=== PATIENT | male | born 1940 | race Caucasian/White ===

== ENCOUNTER 2017-11-02 16:28 | Inpatient (IN) | payer MEDICARE ==
[2017-11-02] MEDS ORDERED: PROVENTIL 2.5 MG/3 ML NEB IH ONE ×2 (16:33→16:35)
[2017-11-02] MEDS ORDERED: LEVOFLOXACIN 750MG/150ML D5W 750 MG/150 ML BAG IV STA (16:35)
[2017-11-02 16:44] LABS: A-aADO2 201; ABG HEMOGLOBIN 11.1; ABG POTASSIUM 3.5 (3.5-5.1); ABG SITE RIGHT RADIAL; ARTERIAL BLD GAS O2 SATURATION 99.2 % (95-100); ARTERIAL BLOOD GAS BASE EXCESS 6.8 (-2.0-2.0); ARTERIAL BLOOD GAS FIO2 60 %; ARTERIAL BLOOD GAS PCO2 47 mmHg (35-45); ARTERIAL BLOOD GAS PO2 168 mmHg (75-100); ARTERIAL BLOOD GAS pH 7.44 (7.35-7.45); CARBOXYHEMOGLOBIN 1.6 % THgb (0.0-6.9); HCO3- 31.9 (22-28); HGB O2 SAT 96.3 g/dF (94-100); Methhemoglobin 1.3 % (1.4-1.5); paO2 pAO1 0.46
[2017-11-02] MEDS ORDERED: Sodium Chloride 0.9% 1000 ML 1,000 ML IV SCH ×2 (16:45→18:08)
[2017-11-02] MEDS ORDERED: Sodium Chloride 0.9% 1000 ML 1,000 ML ONE (16:47)
[2017-11-02] MEDS ORDERED: LEVOFLOXACIN 750MG/150ML D5W 750 MG/150 ML BAG IV ONE (16:47)
[2017-11-02 16:49] LABS: Hematocrit 35.2 % (42-50); Hemoglobin 10.9 gm/dl (12.5-18.0); Mean Platelet Volume 11.9 fl (6-9.5); Platelet Count 166 K/mm3 (150-450); Red Blood Count 3.87 M/mm3 (4.1-5.6); Red Cell Distribution Width 16.5 % (11.5-14.0); White Blood Count 8.3 K/mm3 (4.0-10.5)
--- NOTE | 2017-11-02 16:55 | XRAY ---
Indication: Short of breath and cough. Comparison: None Portable chest demonstrates diffuse scattered calcific granulomas without focal infiltrate, consolidation, or large effusion. Heart is not enlarged. Left-sided AICD and multiple overlying monitoring leads. Bony thorax intact with mild osteopenia, degenerative changes, and mild scoliosis. Impression: Nonacute with chronic features.
[2017-11-02 16:56] LABS: Mean Corpuscular Hemoglobin 28.1 pg (26-32)
[2017-11-02 16:57] LABS: Granulocyte Absolute (ANC) 7.16 (1.4-6.9)
[2017-11-02 17:07] LABS: INR 1.13 (0.8-3.0)
[2017-11-02 17:10] LABS: PTT 18.7 SECONDS (24.1-36.1)
[2017-11-02 17:15] LABS: ALBUMIN 2.1 g/dL (3.4-5.0); ALKALINE PHOSPHATASE 98 U/L (46-116); ANION GAP 12.7 MEQ/L (5-15); BLOOD UREA NITROGEN 15 mg/dL (9-20); CHLORIDE 102 mEq/L (98-107); Calcium 9.8 mg/dL (8.5-10.1); Carbon Dioxide 31.1 mEq/L (21-32); Creatinine 1 1.08 mg/dl (0.55-1.30); EST GLOMERULAR FILTRATION RATE > 60 ML/MIN; Glucose 121 MG/DL (70-110); MAGNESIUM 1.8 mg/dL (1.8-2.4); Potassium 4.6 mEq/L (3.5-5.1); SGOT/AST 34 U/L (15-37); SGPT/ALT 16 U/L (12-78); SODIUM 141 mEq/L (136-145); Total Protein 7.1 gm/dL (6.4-8.2)
[2017-11-02] MEDS ORDERED: TYLENOL 325 MG PO ONE (17:19)
[2017-11-02] MEDS ORDERED: TYLENOL 325 MG ONE (17:22)
--- NOTE | 2017-11-02 17:34 | ERPHSYRPT ---
- History of Present Illness Time Seen by Provider: 11/02/17 16:35 Source: patient, family, EMS (gave oxygen, duoneb, and solu medrol 125mg IVPTA) Patient Subjective Stated Complaint: pt brought to ed per ems from home-reports pt has had increased sob over the last week-productive cough-91 % room air upon ems arrival Triage Nursing Assessment: pt present sob upon arrival-retractions and audible wheezes noted-pt unable to lay flat Physician History: CC: short of breath Hx; 76 y/o patient of Dr Morel with shortness of breath. Productive cough without fever or chills for 2 weeks, worse. Now has sputum. He is allergic to ceclor or singulair per ? He sees Dr Simms from pulmonary. EMS noted he was off oxygen on arrival. Improved with their oxygen and neb en route. Timing/Duration: week(s) (2) Severity of Dyspnea-Max: severe Severity of Dyspnea-Current: moderate Allergies/Adverse Reactions: No Known Drug Allergies Allergy (Unverified 11/02/17 17:12) Hx Tetanus, Diphtheria Vaccination/Date Given: No Hx Influenza Vaccination/Date Given: No Hx Pneumococcal Vaccination/Date Given: No Immunizations Up to Date: Yes - Review of Systems Constitutional: Malaise, No Fever, No Chills Eyes: No Symptoms Ears, Nose, & Throat: No Symptoms Respiratory: Cough, Dyspnea, Wheezing Cardiac: No Chest Pain, No Syncope Abdominal/Gastrointestinal: No Abdominal Pain, No Nausea, No Vomiting, No Diarrhea Genitourinary Symptoms: No Symptoms All Other Systems: Reviewed and Negative - Past Medical History Pertinent Past Medical History: Yes Cardiac History: Myocardial Infarction ([place]) Respiratory History: CHF, COPD - Past Surgical History Past Surgical History: Yes Cardiac: Internal Defibrillator, Pacemaker - Social History Smoking Status: Current some day smoker Exposure to second hand smoke: No Drug Use: none Patient Lives Alone: No - Nursing Vital Signs Nursing Vital Signs: Initial Vital Signs Pulse Rate 140 H 11/02/17 16:36 Respiratory Rate 36 H 11/02/17 16:36 O2 Sat by Pulse Oximetry 98 11/02/17 16:36 Pain Scale Pain Intensity 0 - Physical Exam General Appearance: moderate distress (breathless), alert Eye Exam: PERRL/EOMI Ears, Nose, Throat Exam: nasal congestion Neck Exam: normal inspection, non-tender, supple Respiratory Exam: respiratory distress, diminished breath sounds, crackles/rales , rhonchi, wheezing Cardiovascular/Chest Exam: tachycardia, irregular Abdominal/Gastrointestinal Exam: soft, No tenderness, No distention Extremity Exam: non-tender, normal range of motion, no calf tenderness, pedal edema (present bilateral) Neurologic Exam: alert, cooperative (mostly), sensation nml, No motor deficits Skin Exam: warm, dry, No rash SpO2 Interpretation: normal SpO2: 97 Oxygen Delivery: Nasal Cannula - Course Nursing assessment & vital signs reviewed: Yes EKG Interpreted by Me: RATE (134), A-fib, NORMAL AXIS, Non-specific ST Changes - Radiology Exams cxr X-ray Interpretation: Teleradiologist Report, No Pneumonia Ordered Tests: Active Orders 24 hr Category Date Time Status CO2 Monitoring STAT Care 11/02/17 17:22 Active Operating Theatre Technician STAT Care 11/02/17 16:36 Active Clean Catch Urine Specimen STAT Care 11/02/17 16:35 Active EKG-ER Only STAT Care 11/02/17 16:35 Active IV Insertion STAT Care 11/02/17 16:35 Active Oxygen-ED Only NASAL CANNULA 2 lpm Care 11/02/17 17:22 Active Pulse Oximetry (ED) STAT Care 11/02/17 16:35 Active Rectal Temperature STAT Care 11/02/17 16:35 Active CHEST 1 VIEW (PORTABLE) Stat Exams 11/02/17 16:35 Completed ARTERIAL BLOOD GASES Stat Lab 11/02/17 16:35 Results BLOOD CULTURE Stat Lab 11/02/17 16:51 Received CBC W DIFF Stat Lab 11/02/17 16:43 Completed CMP Stat Lab 11/02/17 16:43 Completed CULTURE,SPUTUM Stat Lab 11/02/17 16:35 Uncollected Lactic Acid Stat Lab 11/02/17 16:35 Results MAGNESIUM Stat Lab 11/02/17 16:43 Completed Manual Differential NC Stat Lab 11/02/17 16:43 Completed PROTIME WITH INR Stat Lab 11/02/17 16:43 Completed PTT Stat Lab 11/02/17 16:43 Completed TROPONIN Q3H Lab 11/02/17 17:30 Ordered TROPONIN Q3H Lab 11/02/17 20:30 Ordered TROPONIN Q3H Lab 11/02/17 23:30 Ordered TROPONIN Q3H Lab 11/03/17 02:30 Ordered TROPONIN Q3H Lab 11/03/17 05:30 Ordered UA W/RFX UR CULTURE Stat Lab 11/02/17 16:35 Ordered Respiratory Nebulizer STAT RT 11/02/17 16:36 Completed Medication Summary Generic Name Dose Route Start Last Admin Trade Name Anna PRN Reason Stop Dose Admin Levofloxacin/Dextrose 750 mg in 150 mls @ 100 mls/hr 11/02/17 16:35 11/02/17 16:48 Levofloxacin 750mg/150ml D5w IV 11/02/17 18:04 100 mls/hr STAT STA Administration Sodium Chloride 1,000 mls @ 100 mls/hr 11/02/17 16:45 11/02/17 16:47 Sodium Chloride 0.9% 1000 Ml IV 12/02/17 16:44 100 mls/hr .Q10H ROSSANA Administration Sodium Chloride 500 mls @ 999 mls/hr 11/02/17 17:19 11/02/17 17:29 Sodium Chloride 0.9% 1000 Ml IV 11/02/17 17:49 999 mls/hr .Q31M STA Administration Discontinued Medications Generic Name Dose Route Start Last Admin Trade Name Anna PRN Reason Stop Dose Admin Acetaminophen 650 mg 11/02/17 17:19 11/02/17 17:29 Tylenol 325 Mg PO 11/02/17 17:20 650 mg STAT ONE Administration Acetaminophen Confirm 11/02/17 17:22 Tylenol 325 Mg Administered 11/02/17 17:23 Dose 650 mg .ROUTE .STK-MED ONE Albuterol Sulfate Confirm 11/02/17 16:33 Proventil 2.5 Mg/3 Ml Neb Administered 11/02/17 16:34 Dose 2.5 mg IH .STK-MED ONE Albuterol Sulfate 2.5 mg 11/02/17 16:35 11/02/17 16:49 Proventil 2.5 Mg/3 Ml Neb IH 11/02/17 16:36 2.5 mg STAT ONE Administration Levofloxacin/Dextrose Confirm 11/02/17 16:47 Levofloxacin 750mg/150ml D5w Administered 11/02/17 16:48 Dose 750 mg in 150 mls @ ud IV .STK-MED ONE Lab/Rad Data: Laboratory Result Diagrams 11/02/17 16:43 11/02/17 16:43 Laboratory Results 11/02/17 11/02/17 11/02/17 Range/Units 16:51 16:43 16:43 WBC (4.0-10.5) K/mm3 RBC (4.1-5.6) M/mm3 Hgb (12.5-18.0) gm/dl Hct (42-50) % MCV (78-100) fl MCH (26-32) pg MCHC (32-36) g/dl RDW (11.5-14.0) % Plt Count (150-450) K/mm3 MPV (6-9.5) fl INR 1.13 (0.8-3.0) APTT 18.7 L (24.1-36.1) SECONDS Puncture Site pCO2 (35-45) mmHg pO2 (75-100) mmHg Base Excess (-2.0-2.0) O2 Saturation (94-100) g/dF ABG pH (7.35-7.45) ABG HCO3 (22-28) ABG O2 Sat (Measured) (95-100) % Arnie Test A-a Gradient a/A Ratio Hemoglobin Carboxyhemoglobin (0.0-6.9) % THgb Methemoglobin (1.4-1.5) % Potassium 4.6 (3.5-5.1) Temperature C POC O2 Flow Rate % Sodium 141 (136-145) mEq/L Chloride 102 (98-107) mEq/L Carbon Dioxide 31.1 (21-32) mEq/L Anion Gap 12.7 (5-15) MEQ/L BUN 15 (9-20) mg/dL Creatinine 1.08 (0.55-1.30) mg/dl Estimated GFR > 60 ML/MIN Glucose 121 H (70-110) MG/DL Lactic Acid (0.4-2.0) Calcium 9.8 (8.5-10.1) mg/dL Magnesium 1.8 (1.8-2.4) mg/dL Total Bilirubin 0.70 (0.2-1.0) mg/dL AST 34 (15-37) U/L ALT 16 (12-78) U/L Alkaline Phosphatase 98 (46-116) U/L Serum Total Protein 7.1 (6.4-8.2) gm/dL Albumin 2.1 L (3.4-5.0) g/dL Influenza Type A Ag POSITIVE (NEGATIVE) Influenza Type B Ag NEGATIVE (NEGATIVE) RSV (PCR) NEGATIVE (Negative) 11/02/17 11/02/17 Range/Units 16:43 16:35 WBC 8.3 (4.0-10.5) K/mm3 RBC 3.87 L (4.1-5.6) M/mm3 Hgb 10.9 L (12.5-18.0) gm/dl Hct 35.2 L (42-50) % MCV 91.0 (78-100) fl MCH 28.1 (26-32) pg MCHC 31.0 L (32-36) g/dl RDW 16.5 H (11.5-14.0) % Plt Count 166 (150-450) K/mm3 MPV 11.9 H (6-9.5) fl INR (0.8-3.0) APTT (24.1-36.1) SECONDS Puncture Site RIGHT RADIAL pCO2 47 H (35-45) mmHg pO2 168 H* (75-100) mmHg Base Excess 6.8 H (-2.0-2.0) O2 Saturation 96.3 (94-100) g/dF ABG pH 7.44 (7.35-7.45) ABG HCO3 31.9 H* (22-28) ABG O2 Sat (Measured) 99.2 (95-100) % Arnie Test NOT APPLICABLE A-a Gradient 201 a/A Ratio 0.46 Hemoglobin 11.1 Carboxyhemoglobin 1.6 (0.0-6.9) % THgb Methemoglobin 1.3 L (1.4-1.5) % Potassium 3.5 (3.5-5.1) Temperature 37.0 C POC O2 Flow Rate 60 % Sodium (136-145) mEq/L Chloride (98-107) mEq/L Carbon Dioxide (21-32) mEq/L Anion Gap (5-15) MEQ/L BUN (9-20) mg/dL Creatinine (0.55-1.30) mg/dl Estimated GFR ML/MIN Glucose (70-110) MG/DL Lactic Acid 2.0 (0.4-2.0) Calcium (8.5-10.1) mg/dL Magnesium (1.8-2.4) mg/dL Total Bilirubin (0.2-1.0) mg/dL AST (15-37) U/L ALT (12-78) U/L Alkaline Phosphatase (46-116) U/L Serum Total Protein (6.4-8.2) gm/dL Albumin (3.4-5.0) g/dL Influenza Type A Ag (NEGATIVE) Influenza Type B Ag (NEGATIVE) RSV (PCR) (Negative) - Progress Progress Note: 11/02/17 17:43 Still tachycardic. IVF bolus in progress. APAP given. Nebs given. He does not know meds. Flu A now positive. Called Dr Nava for [facility] and will place in ICU observation. She will decide further antiarrythmic after fluid bolus. Labs reassuring but he has some degree of resp distress with COPD that is concerning for deteriotation. Discussed with .: Elijah Will see patient in: hospital (observation) Counseled pt/family regarding: lab results, diagnosis, need for follow-up, rad results - Departure Time of Disposition: 17:44 Departure Disposition: Observation (ICU Dr Morel) Clinical Impression: Acute respiratory distress, Influenza A, COPD exacerbation Condition: Fair Critical Care Time: No Referrals: OLGA MOREL MD [Primary Care Provider] -
[2017-11-02 17:41] LABS: INFLUENZA B NEGATIVE (NEGATIVE); RESPIRATORY SYNCTIAL VIRUS NEGATIVE (Negative)
[2017-11-02 17:42] LABS: INFLUENZA A POSITIVE (NEGATIVE)
[2017-11-02 17:50] LABS: Appearance CLEAR (CLEAR); Bacteria MODERATE /HPF (NEGATIVE); Bilirubin NEGATIVE (NEGATIVE); Blood TRACE NON-HEM Ery/ul (0-5); Epithelial Cells RARE /HPF (FEW); Glucose NEGATIVE (NEGATIVE); Hyaline Casts 0-2 /LPF (0-2); Ketones NEGATIVE (NEGATIVE); Leukocyte Esterase TRACE (NEGATIVE); Mucus SLIGHT /HPF (NEGATIVE); Nitrite NEGATIVE (NEGATIVE); Protein,Urine Dip 30 (Negative); Specific Gravity 1.015 (1.005-1.025); Urobilinogen NORMAL mg/dL (0-1)
[2017-11-02] MEDS ORDERED: TYLENOL 325 MG PO PRN (18:08)
[2017-11-02] MEDS ORDERED: DUONEB 0.5-3 MG/3 ml Neb IH PRN (18:08)
[2017-11-02 18:22] LABS: Lymphocytes 6 % (24-44); Monocyte 1 % (0.0-12.0); Neutrophils 93 % (36.-66.); Platelet Estimate NORMAL (NORMAL); Total Cells Counted 100
[2017-11-02] MEDS: solu-MEDROL 125 MG IV SCH (18:31)
[2017-11-02] MEDS ORDERED: DUONEB 0.5-3 MG/3 ml Neb IH ONE (19:03)
[2017-11-02] MEDS: Sodium Chloride 0.9% 1000 ML 1,000 ML IV SCH (19:28)
[2017-11-02] MEDS ORDERED: CARDIZEM DRIP 100 MG/100 ML D5W 100 ML IV PRN (20:22)
--- NOTE | 2017-11-02 20:33 | PCM.HP ---
History of Present Illness - Chief Complaint Chief Complaint: Shortness of Breath History of Present Illness: is a 76 year old male pt of Dr. Morel from [facility] with COPD and CAD who came to ER [facility] c/o 2 wks of cough. CXR neg. He was found to have Influenza A. He was given nebulizer and IV levaquin and admitted to the ICU. He was quite SOB on admission but doing a little better now. Temp to 100.6 at home. Pt's first troponin was a little elevated at 0.064. He last had chest pain several days ago. - Review of Systems Constitutional: Fever Respiratory: Cough, Short Of Breath Cardiac: Chest Pain (several days ago), Edema (feet), Orthopnea Abdominal/Gastrointestinal: Diarrhea, Appetite Changes (no food x 7d, has been elena fluids) Neurological: Dizziness, No Parasthesia Psychological: Depression (denies suicidal ideation, but states, "I'd rather get well or be gone.") All Other Systems: Reviewed and Negative (poor historian) Medications & Allergies Allergies/Adverse Reactions: Allergies Allergy/AdvReac Type Severity Reaction Status Date / Time No Known Drug Allergies Allergy Unverified 11/02/17 17:12 - Past Medical History Past Medical History: Yes Cardiac History: Myocardial Infarction ([place]) Respiratory History: CHF, COPD - Past Surgical History Past Surgical History: Yes Cardiac History: Internal Defibrillator, Pacemaker - Social History Smoking Status: Current some day smoker Exposure to second hand smoke: No Alcohol: None Drug Use: none - Physical Exam Vital Signs: Vital Signs - 24 hr Temp Pulse Resp BP Pulse Ox 11/02/17 18:08 100 11/02/17 17:45 97 11/02/17 17:07 98.9 F 150 H 34 H 144/97 97 11/02/17 17:06 30 H 98 11/02/17 17:05 98.9 F 11/02/17 17:02 98 11/02/17 16:36 140 H 36 H 98 Oxygen-Last 24 hours O2 Percentage 4 Liters = 36% O2 Percentage 2 Liters = 28% O2 Percentage 2 Liters = 28% O2 Percentage 2 Liters = 28% General Appearance: no apparent distress, alert, thin Neurologic Exam: oriented x 3, cooperative, other (difficult to understand due to edentulous.) Eye Exam: eyes nml inspection Ears, Nose, Throat Exam: dry mucous membranes, other (tongue with black coating. no posterior pharyngeal erythema) Neck Exam: normal inspection Respiratory Exam: diminished breath sounds, prolonged expirations, wheezing ( faint scattered), No crackles/rales, No rhonchi Cardiovascular Exam: normal heart sounds, tachycardia, No murmur Gastrointestinal/Abdomen Exam: soft, tenderness (nonspecific), No distention, No mass, No guarding, No rebound Back Exam: normal inspection, No rash Extremity Exam: pedal edema (trace bilat. pedal pulses + bilat) Skin Exam: normal color, warm, dry, other (distal LE bilat quite dry skin) Results - Other Procedures and Tests Respiratory Therapy 11/02/17 20:17 EKG ROUTINE Assessment/Plan (1) Acute respiratory distress Current Visit: Yes Status: Acute Assessment & Plan: much improved. Getting nebs q4h, duonebs. Code(s): R06.03 - ACUTE RESPIRATORY DISTRESS (2) Elevated troponin I level Current Visit: Yes Status: Acute Assessment & Plan: I spoke wiht Dr. Wisdom, travel money advisor for Dr. Mata. He agrees that the elevated troponin may be just due to acute illness. Will continue wiht 5 total serial troponins. Repeat EKG now. Dr. Wisdom will be available to accept pt in transfer overnight if necessary due to elevated enzymes. I discussed with pt and his and they agree. Code(s): R74.8 - ABNORMAL LEVELS OF OTHER SERUM ENZYMES (3) Atrial fibrillation with RVR Current Visit: Yes Status: Acute Assessment & Plan: Will start on cardizem drip. Waited for initial 1L bolus to see what impact that would make on HR - dropped temporarily by about 10-15 bpm. Still tachycardic now. Code(s): I48.91 - UNSPECIFIED ATRIAL FIBRILLATION (4) CAD (coronary artery disease) Current Visit: Yes Status: Chronic Code(s): I25.10 - ATHSCL HEART DISEASE OF [place] CORONARY ARTERY W/O ANG PCTRS (5) COPD exacerbation Current Visit: Yes Status: Acute Assessment & Plan: on IV levaquin. Intially there was a misunderstanding in ER that pt was allergic to ceclor - he is not, perhaps he is allergic to singulair although this is not on his list either - so he was started on levaquin. Code(s): J44.1 - CHRONIC OBSTRUCTIVE PULMONARY DISEASE W (ACUTE) EXACERBATION (6) Influenza A Current Visit: Yes Status: Acute Assessment & Plan: on tamiflu Code(s): J10.1 - FLU DUE TO OTH IDENT INFLUENZA VIRUS W OTH RESP MANIFEST (7) DVT prophylaxis Current Visit: Yes Status: Acute Code(s): JCL4463 -
[2017-11-02] MEDS ORDERED: Tamiflu 75MG Capsule PO SCH (22:00)
[2017-11-02] MEDS: DUONEB 0.5-3 MG/3 ml Neb IH SCH (23:42)
[2017-11-03] MEDS: Mucinex 600MG ER Tabs PO SCH ×3 (00:09→23:02)
[2017-11-03] MEDS: solu-MEDROL 125 MG IV SCH ×5 (00:09→23:01)
[2017-11-03] MEDS ORDERED: PROVENTIL 2.5 MG/3 ML NEB IH PRN (01:15)
[2017-11-03] MEDS ORDERED: PROVENTIL 2.5 MG/3 ML NEB IH ONE (01:17)
[2017-11-03] MEDS: DUONEB 0.5-3 MG/3 ml Neb IH SCH ×6 (03:24→23:23)
[2017-11-03 05:36] LABS: Lactic Acid 0.9 (0.4-2.0); VBG BASE EXCESS 6.4 (-2.0-2.0); VBG CARBOXYHEMOGLOBIN 3.1 % T HGB (0.0-6.9); VBG HCO3- 30.5 meq/L (22-28); VBG HEMOGLOBIN 8.1; VBG O2 SATURATION 91.5 (95-100); VBG POTASSIUM 3.4 (3.5-5.1); VBG pH 7.48 (7.32-7.42)
[2017-11-03] MEDS: Sodium Chloride 0.9% 1000 ML 1,000 ML IV SCH ×2 (05:37→23:03)
[2017-11-03 06:12] LABS: Granulocyte Absolute (ANC) 3.06 (1.4-6.9); Hematocrit 27.9 % (42-50); Hemoglobin 8.7 gm/dl (12.5-18.0); Mean Corpuscular Hgb Concent. 31.2 g/dl (32-36); Mean Platelet Volume 10.9 fl (6-9.5); Platelet Count 138 K/mm3 (150-450); Red Cell Distribution Width 16.3 % (11.5-14.0); White Blood Count 3.3 K/mm3 (4.0-10.5)
[2017-11-03 06:35] LABS: ANION GAP 10.8 MEQ/L (5-15); BLOOD UREA NITROGEN 17 mg/dL (9-20); CHLORIDE 105 mEq/L (98-107); Calcium 8.7 mg/dL (8.5-10.1); Carbon Dioxide 27.7 mEq/L (21-32); Creatinine 1 0.83 mg/dl (0.55-1.30); EST GLOMERULAR FILTRATION RATE > 60 ML/MIN; Glucose 150 MG/DL (70-110); Potassium 3.4 mEq/L (3.5-5.1); SODIUM 140 mEq/L (136-145)
[2017-11-03] MEDS ORDERED: NORCO 7.5/325 MG TAB PO PRN (07:02)
[2017-11-03] MEDS ORDERED: Nitrostat 0.4 MG Tablet SL PRN (07:02)
--- NOTE | 2017-11-03 07:50 | PCM.NOTE ---
Date and Time: 11/03/17746 Subjective Assessment: patient c/o oxygen facemask and CO2 detector device, denies chest pain. still has cough and dyspnea Objective Exam General Appearance: no apparent distress, thin Neurologic Exam: alert Skin Exam: pale Respiratory Exam: prolonged expirations, wheezing Cardiovascular Exam: irregular Gastrointestinal/Abdomen Exam: soft, No tenderness, No mass Extremity Exam: normal inspection, normal range of motion OBJECTIVE DATA Vital Signs: Vital Signs - 24 hr Temp Pulse Resp BP BP Pulse Ox 11/03/17 07:34 97.9 F 90 16 107/72 100 11/03/17 07:03 88 24 99 11/03/17 06:50 81 18 114/64 100 11/03/17 06:00 98.2 F 77 16 112/63 100 11/03/17 04:59 98.2 F 89 16 113/69 100 11/03/17 03:54 98.2 F 97 H 17 112/48 100 11/03/17 03:24 99 H 20 100 11/03/17 03:00 98.2 F 102 H 16 105/69 100 11/03/17 02:00 98.2 F 97 H 21 113/57 99 11/03/17 01:20 98 H 21 98 11/03/17 01:00 98.2 F 111 H 29 H 114/67 99 11/03/17 00:01 109 H 11/03/17 00:00 98.2 F 102 H 114/72 100 11/02/17 23:42 100 H 21 99 11/02/17 22:53 98.2 F 103 H 117/68 100 11/02/17 22:03 112 H 106/70 11/02/17 22:00 98.2 F 104 H 121/75 99 11/02/17 21:00 98.2 F 108 H 20 114/65 100 11/02/17 20:31 102 H 20 100 11/02/17 20:00 98.9 F 102 H 20 112/81 94 L 11/02/17 18:08 100 11/02/17 17:45 97 11/02/17 17:07 98.9 F 150 H 34 H 144/97 97 11/02/17 17:06 30 H 98 11/02/17 17:05 98.9 F 11/02/17 17:02 98 11/02/17 16:36 140 H 36 H 98 Oxygen-Last 24 hours O2 Percentage 4 Liters = 36% O2 Percentage 4 Liters = 36% O2 Percentage 4 Liters = 36% O2 Percentage 4 Liters = 36% O2 Percentage 4 Liters = 36% O2 Percentage 4 Liters = 36% O2 Percentage 4 Liters = 36% O2 Percentage 4 Liters = 36% O2 Percentage 4 Liters = 36% O2 Percentage 4 Liters = 36% O2 Percentage 4 Liters = 36% O2 Percentage 4 Liters = 36% O2 Percentage 4 Liters = 36% O2 Percentage 2 Liters = 28% O2 Percentage 2 Liters = 28% O2 Percentage 2 Liters = 28% Oxygen Flowrate (L/min)-RT 4 Pain Assessment - Last Documented Pain Intensity 0 Pain Scale Used 0-10 Pain Scale Intake and Output: Intake & Output 10/31/17 11/01/17 11/02/17 11/03/17 11:59 11:59 11:59 11:59 Intake Total 1851 Output Total 0 Balance 1851 Weight 52.8 kg Lab Results: Lab Results-Last 24 Hours 11/02/17 11/02/17 11/02/17 Range/Units 21:02 21:06 23:41 WBC (4.0-10.5) K/mm3 RBC (4.1-5.6) M/mm3 Hgb (12.5-18.0) gm/dl Hct (42-50) % MCV (78-100) fl MCH (26-32) pg MCHC (32-36) g/dl RDW (11.5-14.0) % Plt Count (150-450) K/mm3 MPV (6-9.5) fl VBG pH (7.32-7.42) VBG pCO2 at Pat Temp (42-55) mm/Hg VBG pO2 at Pat Temp (25-40) mm/Hg VBG HCO3 (22-28) meq/L VBG O2 Sat (Yocasta) (95-100) VBG Base Excess (-2.0-2.0) VBG Hemoglobin VBG Carboxyhemoglobin (0.0-6.9) % T HGB POC Potassium (3.5-5.1) Sodium (136-145) mEq/L Potassium (3.5-5.1) mEq/L Chloride (98-107) mEq/L Carbon Dioxide (21-32) mEq/L Anion Gap (5-15) MEQ/L BUN (9-20) mg/dL Creatinine (0.55-1.30) mg/dl Estimated GFR ML/MIN Glucose (70-110) MG/DL Lactic Acid 1.3 (0.4-2.0) Calcium (8.5-10.1) mg/dL Troponin I 0.078 H* 0.080 H* (0.000-0.056) ng/ml 11/03/17 11/03/17 11/03/17 Range/Units 05:20 05:20 05:30 WBC 3.3 L (4.0-10.5) K/mm3 RBC 3.10 L (4.1-5.6) M/mm3 Hgb 8.7 L (12.5-18.0) gm/dl Hct 27.9 L (42-50) % MCV 90.0 (78-100) fl MCH 28.0 (26-32) pg MCHC 31.2 L (32-36) g/dl RDW 16.3 H (11.5-14.0) % Plt Count 138 L (150-450) K/mm3 MPV 10.9 H (6-9.5) fl VBG pH 7.48 H (7.32-7.42) VBG pCO2 at Pat Temp 41 L (42-55) mm/Hg VBG pO2 at Pat Temp 49 H (25-40) mm/Hg VBG HCO3 30.5 H* (22-28) meq/L VBG O2 Sat (Yocasta) 91.5 L (95-100) VBG Base Excess 6.4 H (-2.0-2.0) VBG Hemoglobin 8.1 VBG Carboxyhemoglobin 3.1 (0.0-6.9) % T HGB POC Potassium 3.4 L (3.5-5.1) Sodium 140 (136-145) mEq/L Potassium 3.4 L (3.5-5.1) mEq/L Chloride 105 (98-107) mEq/L Carbon Dioxide 27.7 (21-32) mEq/L Anion Gap 10.8 (5-15) MEQ/L BUN 17 (9-20) mg/dL Creatinine 0.83 (0.55-1.30) mg/dl Estimated GFR > 60 ML/MIN Glucose 150 H (70-110) MG/DL Lactic Acid 0.9 (0.4-2.0) Calcium 8.7 (8.5-10.1) mg/dL Troponin I (0.000-0.056) ng/ml Assessment/Plan (1) Atrial fibrillation with RVR Current Visit: Yes Status: Acute Assessment & Plan: rate controlled on cardizem gtt 8mg/hr, will transition to po cardizem LA at 180mg, add xarelto for prophylaxis and d/c lovenox 40mg Code(s): I48.91 - UNSPECIFIED ATRIAL FIBRILLATION (2) COPD exacerbation Current Visit: Yes Status: Acute Assessment & Plan: continue levaquin, nebs, oxygen and solu medrol Code(s): J44.1 - CHRONIC OBSTRUCTIVE PULMONARY DISEASE W (ACUTE) EXACERBATION (3) Elevated troponin I level Current Visit: Yes Status: Acute Assessment & Plan: likely from a fib with rvr, no chest pain. [facility] aware per Dr Nava's note Code(s): R74.8 - ABNORMAL LEVELS OF OTHER SERUM ENZYMES (4) Influenza A Current Visit: Yes Status: Acute Assessment & Plan: continue tamiflu at this time Code(s): J10.1 - FLU DUE TO OTH IDENT INFLUENZA VIRUS W OTH RESP MANIFEST
[2017-11-03 07:55] LABS: ACANTHROCYTES 1+; ANISOCYTOSIS 1+; Lymphocytes 8 % (24-44); Neutrophils 92 % (36.-66.); Platelet Estimate NORMAL (NORMAL); Poikilocytosis 2+; Total Cells Counted 100
[2017-11-03] MEDS: Pepcid 20 MG PO SCH (09:17)
[2017-11-03] MEDS: ZOCOR 20MG PO SCH (09:17)
[2017-11-03] MEDS: XARELTO 10 MG TABLET PO SCH (09:17)
[2017-11-03] MEDS: Cardizem CD 180 MG PO SCH (09:18)
[2017-11-03] MEDS: OSELTAMIVIR PHOSPHATE 30 MG CAP PO SCH ×2 (09:18→23:03)
[2017-11-03] MEDS: Protonix 40MG Tablet PO SCH (09:18)
[2017-11-03] MEDS: REQUIP 2MG TAB PO SCH (09:19)
[2017-11-03] MEDS ORDERED: DELTASONE 10 MG PO SCH (10:00)
[2017-11-03] MEDS ORDERED: ATORVASTATIN CALCIUM PO SCH (10:00)
[2017-11-03] MEDS ORDERED: ENOXAPARIN SODIUM SQ SCH (10:00)
[2017-11-03] MEDS ORDERED: FAMOTIDINE PO SCH (10:00)
[2017-11-03] MEDS ORDERED: Tussionex Pennkinetic Susp PO PRN (10:04)
[2017-11-03] MEDS: Diflucan 100 MG PO SCH (16:36)
[2017-11-03] MEDS ORDERED: LEVOFLOXACIN 750MG/150ML D5W 750 MG/150 ML BAG IV SCH (22:00)
[2017-11-04] MEDS: DUONEB 0.5-3 MG/3 ml Neb IH SCH ×2 (03:23→06:24)
[2017-11-04 06:05] LABS: Hematocrit 29.4 % (42-50); Hemoglobin 9.1 gm/dl (12.5-18.0); Mean Cell Volume 90.2 fl (78-100); Mean Corpuscular Hemoglobin 27.9 pg (26-32); Mean Platelet Volume 10.9 fl (6-9.5); Platelet Count 213 K/mm3 (150-450); Red Blood Count 3.26 M/mm3 (4.1-5.6); Red Cell Distribution Width 16.6 % (11.5-14.0)
[2017-11-04 06:31] LABS: ALBUMIN 1.9 g/dL (3.4-5.0); ALKALINE PHOSPHATASE 75 U/L (46-116); ANION GAP 9.5 MEQ/L (5-15); BLOOD UREA NITROGEN 27 mg/dL (9-20); CHLORIDE 104 mEq/L (98-107); Carbon Dioxide 26.3 mEq/L (21-32); Creatinine 1 1.14 mg/dl (0.55-1.30); EST GLOMERULAR FILTRATION RATE > 60 ML/MIN; Glucose 274 MG/DL (70-110); MAGNESIUM 1.7 mg/dL (1.8-2.4); Potassium 3.5 mEq/L (3.5-5.1); SGOT/AST 23 U/L (15-37); SGPT/ALT 17 U/L (12-78); SODIUM 136 mEq/L (136-145)
[2017-11-04] MEDS: solu-MEDROL 125 MG IV SCH (06:31)
--- NOTE | 2017-11-04 07:39 | PCM.DS ---
Discharge Summary Date of Admission: 11/02/17 20:28 Admitting Physician: OLGA BRAGG Primary Care Provider: OLGA BRAGG Allergies Allergies No Known Drug Allergies Allergy (Unverified 11/02/17 17:12) Hospital Summary - Hospital Course Hospital Course: patient feeling much better, was in a fib with rvr on arrival, started on po cardizem and xarelto. rate has been controlled, also had influenza and copd exacerbation. sats are good on oxygen via nasal cannula which he has at home, patient asking to go home today. - Vitals & Intake/Output Vital Signs: Vital Signs Temperature 97.5 F 11/04/17 03:40 Pulse Rate 81 11/04/17 06:28 Respiratory Rate 18 11/04/17 06:28 Blood Pressure 126/86 11/04/17 03:40 O2 Sat by Pulse Oximetry 98 11/04/17 06:28 Oxygen-Last Documented O2 Percentage 3 Liters = 32% Intake & Output: Intake & Output 11/01/17 11/02/17 11/03/17 11/04/17 11:59 11:59 11:59 11:59 Intake Total 1851 2012 Output Total 0 200 Balance 1851 1813 Weight 52.8 kg - Lab Result Diagrams: 11/04/17 05:57 11/04/17 05:57 Lab Results-Last 24 Hrs: Lab Results-Last 24 Hours 11/03/17 11/04/17 11/04/17 Range/Units 05:20 05:57 05:57 WBC 11.0 H (4.0-10.5) K/mm3 RBC 3.26 L (4.1-5.6) M/mm3 Hgb 9.1 L (12.5-18.0) gm/dl Hct 29.4 L (42-50) % MCV 90.2 (78-100) fl MCH 27.9 (26-32) pg MCHC 31.0 L (32-36) g/dl RDW 16.6 H (11.5-14.0) % Plt Count 213 (150-450) K/mm3 MPV 10.9 H (6-9.5) fl Segmented Neutrophils 92 H (36.-66.) % Lymphocytes (Manual) 8 L (24-44) % Differential Comment ABNORMAL Platelet Estimate NORMAL (NORMAL) Poikilocytosis 2+ Anisocytosis 1+ Acanthocytes (Spur) 1+ Sodium 136 (136-145) mEq/L Potassium 3.5 (3.5-5.1) mEq/L Chloride 104 (98-107) mEq/L Carbon Dioxide 26.3 (21-32) mEq/L Anion Gap 9.5 (5-15) MEQ/L BUN 27 H (9-20) mg/dL Creatinine 1.14 (0.55-1.30) mg/dl Estimated GFR > 60 ML/MIN Glucose 274 H (70-110) MG/DL Calcium 9.0 (8.5-10.1) mg/dL Magnesium 1.7 L (1.8-2.4) mg/dL Total Bilirubin 0.30 (0.2-1.0) mg/dL AST 23 (15-37) U/L ALT 17 (12-78) U/L Alkaline Phosphatase 75 (46-116) U/L Serum Total Protein 6.0 L (6.4-8.2) gm/dL Albumin 1.9 L (3.4-5.0) g/dL - Procedures and Test Procedures and Tests throughout Hospitalization: Therapy Orders & Screens 11/02/17 19:00 Respiratory Nebulizer Q4H Comment: DUONEB Q4 HOURS Diagnosis: Shortness of Breath 11/03/17 01:15 Respiratory Nebulizer PRN Comment: ALBUTEROL Q2PRN FOR SOB/WHEEZING Diagnosis: Shortness of Breath 11/03/17 01:30 Smoking Cessation Education ONCE Comment: Diagnosis: Shortness of Breath Smoking Status: Current every day smoker Discharge Exam General Appearance: thin, other (frail) Skin Exam: normal color, warm, dry Respiratory Exam: diminished breath sounds, prolonged expirations Cardiovascular Exam: regular rate/rhythm, normal heart sounds, irregular Gastrointestinal/Abdomen Exam: soft, No tenderness, No mass Extremity Exam: normal inspection, normal range of motion Final Diagnosis/Problem List - Final Discharge Diagnosis/Problem (1) Atrial fibrillation with RVR Current Visit: Yes Status: Acute (2) COPD exacerbation Current Visit: Yes Status: Acute (3) Elevated troponin I level Current Visit: Yes Status: Acute (4) Influenza A Current Visit: Yes Status: Acute - Discharge Disposition: Home, Self-Care Condition: Fair Prescriptions: New Diltiazem HCl [Cardizem LA] 180 mg PO DAILY #30 tab.er.24h Prednisone 20 mg [Deltasone 20 mg] 20 mg PO DAILY #18 tablet Fluconazole 100 mg [Diflucan 100 MG] 100 mg PO DAILY #7 tablet Levofloxacin [Levaquin] 750 mg PO DAILY #5 tablet Oseltamivir Phosphate [Oseltamivir Phosphate 30 mg Cap] 30 mg PO BID #6 capsule Rivaroxaban 10 mg Tablet [Xarelto 10 mg Tablet] 20 mg PO DAILY #30 tablet Continue PANTOPRAZOLE 40 mg Tablet [Protonix 40MG Tablet] 40 mg PO QAM Sacubitril/Valsartan [Entresto 24 mg-26 mg Tablet] 1 tablet PO BID Ropinirole 2Mg [Requip 2Mg Tab] 2 mg PO DAILY Prednisone 10 mg [Deltasone 10 mg] 1 tab PO DAILY Hydrocodone Bit/Acetaminophen [Emerado 7.5-325 Tablet] 1 each PO TID PRN PRN Reason: Pain Hydrochlorothiazide 12.5 mg PO DAILY Fluticasone/Salmeterol [Advair 250-50 Diskus] 2 each IH BID Famotidine 1 tablet PO DAILY Atorvastatin Calcium [Lipitor] 1 tablet PO DAILY Aspirin 81 mg PO DAILY Albuterol Sulfate [Ventolin Hfa] 1 gm IH UD PRN PRN Reason: Shortness Of Breath Nitroglycerin 0.4 mg Tablet [Nitrostat 0.4 MG Tablet] 1 mg SL UD PRN PRN Reason: Chest Pain Albuterol/Ipratropium 3ml Neb* [DUONEB 0.5-3 MG/3 ml Neb] 3 ml IH QID PRN # 100 ampul.neb PRN Reason: Shortness Of Breath Follow up with: OLGA BRAGG MD [Primary Care Provider] - TOBIN OLMSTEAD MD [NON-STAFF PHY W/O PRIVILEGES] - 1 Week
[2017-11-04 08:03] LABS: ANISOCYTOSIS 1+; Monocyte 2 % (0.0-12.0); Neutrophils 98 % (36.-66.); Platelet Estimate NORMAL (NORMAL); Total Cells Counted 100; Toxic Granulation 1+
[2017-11-04 09:08] VITALS: BP 118/83; PULSE 71; O2SAT 100
[2017-11-04] MEDS ORDERED: FLUZONE HIGH-DOSE 2017-18 SYR IM ONE (10:00)
[2017-11-04] MEDS ORDERED: LEVOFLOXACIN 750MG/150ML D5W 750 MG/150 ML BAG IV SCH (10:00)
[2017-11-04] MEDS: Cardizem CD 180 MG PO SCH (10:20)
[2017-11-04] MEDS: Diflucan 100 MG PO SCH (10:20)
[2017-11-04] MEDS: Mucinex 600MG ER Tabs PO SCH (10:22)
[2017-11-04] MEDS: OSELTAMIVIR PHOSPHATE 30 MG CAP PO SCH (10:22)
[2017-11-04] MEDS: Pepcid 20 MG PO SCH (10:22)
[2017-11-04] MEDS: XARELTO 10 MG TABLET PO SCH (10:23)
[2017-11-04] MEDS: ZOCOR 20MG PO SCH (10:23)
[2017-11-04] MEDS: Protonix 40MG Tablet PO SCH (10:23)
[2017-11-04] MEDS: REQUIP 2MG TAB PO SCH (10:23)
== END 2017-11-04 10:40 | disposition home or self-care (01) | DRG 309 ==
LOC: ED 16:28 → ICU 17:54 → OBSVTOIN 20:28
PROVIDERS: ADMIT Family Medicine; ATTEND Family Medicine
DX: I48.91 Unspecified atrial fibrillation (principal); J44.1 Chronic obstructive pulmonary disease with (acute) exacerbation; J44.9 Chronic obstructive pulmonary disease, unspecified; R79.89 Other specified abnormal findings of blood chemistry; J10.1 Influenza due to other identified influenza virus with other respiratory manifestations; I25.10 Atherosclerotic heart disease of native coronary artery without angina pectoris; I50.9 Heart failure, unspecified; F32.9 Major depressive disorder, single episode, unspecified; R06.03 Acute respiratory distress; R74.8 Abnormal levels of other serum enzymes; Z79.899 Other long term (current) drug therapy; I25.2 Old myocardial infarction; Z72.0 Tobacco use
CPT/HCPCS: 36415; 36600; 71045; 80048; 80053; 81000; 82375; 82803; 82805; 83605; 83735; 84484; 85025; 85610; 85730; 87040; 87070; 87077; 87086; 87186; 87631; 93005; 93041; 94150; 94640; 94770; 96360; 96361; 99285; G0008; J1956; J2930; 90662; A9270-GY

== ENCOUNTER 2018-12-09 23:12 | Inpatient (IN) | payer MEDICARE ==
--- NOTE | 2018-12-09 23:43 | ERPHSYRPT ---
- History of Present Illness Time Seen by Provider: 12/09/18 23:38 Source: family Exam Limitations: clinical condition Patient Subjective Stated Complaint: pt is alert and disoriented. pt is unable to communicate efficiently. pt is his historian. pt has had a stroke in the past. pt is audibly wheezy. pt has pleural rub to his right lobe anteriorly. diminished on the left side. pt bowel sounds hypoactive. pt is ashen in color, mucus membranes are dry. pt is severely malnourished. pt laya prominences evident. cheeks are sunken in. pt is abdomen is sunken. pt states that pt has not eaten for a week. pt states he has only had ice chips. pt has stage 1 pressure ulcer to his posterior right shoulder. pt has defibrilator in his left chest. Triage Nursing Assessment: see above Physician History: pt is unable to communicate efficiently. pt is his historian. pt has had a stroke in the past. Timing/Duration: today Associated Symptoms: malaise Allergies/Adverse Reactions: montelukast [From Singulair] Allergy (Verified 11/05/17 16:44) Vomiting Home Medications: Albuterol Sulfate [Ventolin Hfa] 1 gm IH UD PRN 11/02/17 [History] Aspirin 81 mg PO DAILY 11/02/17 [History] Atorvastatin Calcium [Lipitor] 1 tablet PO DAILY 11/02/17 [History] Famotidine 1 tablet PO DAILY 11/02/17 [History] Fluticasone/Salmeterol [Advair 250-50 Diskus] 2 each IH BID 11/02/17 [History] Hydrocodone Bit/Acetaminophen [[place] 7.5-325 Tablet] 1 each PO TID PRN 11/02/17 [History] Nitroglycerin 0.4 mg Tablet [Nitrostat 0.4 MG Tablet] 1 mg SL UD PRN 11/02 [History] PANTOPRAZOLE 40 mg Tablet [Protonix 40MG Tablet] 40 mg PO QAM 11/02/17 [ History] Prednisone 10 mg [Deltasone 10 mg] 1 tab PO DAILY 11/02/17 [History] Ropinirole 2Mg [Requip 2Mg Tab] 2 mg PO DAILY 11/02/17 [History] Sacubitril/Valsartan [Entresto 24 mg-26 mg Tablet] 1 tablet PO BID 11/02/17 [ History] hydroCHLOROthiazide [Hydrochlorothiazide] 12.5 mg PO DAILY 11/02/17 [History] Hx Tetanus, Diphtheria Vaccination/Date Given: No Hx Influenza Vaccination/Date Given: No Hx Pneumococcal Vaccination/Date Given: No - Review of Systems Constitutional: Fatigue, Lethargy, Weakness Eyes: No Symptoms Ears, Nose, & Throat: No Symptoms Respiratory: Wheezing Cardiac: No Chest Pain Abdominal/Gastrointestinal: No Symptoms Genitourinary Symptoms: No Symptoms Skin: No Symptoms Neurological: Lethargy, Paralysis Psychological: Anxiety - Past Medical History Pertinent Past Medical History: Yes Neurological History: Stroke ENT History: No Pertinent History Cardiac History: Myocardial Infarction (NM) Respiratory History: CHF, COPD, Pneumonia Endocrine Medical History: No Pertinent History Musculoskeletal History: No Pertinent History GI Medical History: No Pertinent History History: No Pertinent History Psycho-Social History: No Pertinent History Male Reproductive Disorders: No Pertinent History - Past Surgical History Past Surgical History: Yes Neuro Surgical History: No Pertinent History Cardiac: Internal Defibrillator Respiratory: No Pertinent History Gastrointestinal: No Pertinent History Genitourinary: No Pertinent History Musculoskeletal: No Pertinent History Male Surgical History: No Pertinent History - Social History Smoking Status: Former smoker Exposure to second hand smoke: Yes Drug Use: none Patient Lives Alone: No - Nursing Vital Signs Nursing Vital Signs: Initial Vital Signs Temperature 97.6 F 12/09/18 23:17 Pulse Rate 123 H 12/09/18 23:17 Respiratory Rate 18 12/09/18 23:17 Blood Pressure 114/73 12/09/18 23:17 O2 Sat by Pulse Oximetry 100 12/09/18 23:17 Pain Scale Pain Intensity 9 - Physical Exam General Appearance: mild distress Eye Exam: PERRL/EOMI Ears, Nose, Throat Exam: normal ENT inspection Neck Exam: normal inspection Respiratory Exam: diminished breath sounds, wheezing Cardiovascular Exam: regular rate/rhythm Gastrointestinal/Abdomen Exam: soft Extremity Exam: normal inspection Neurologic Exam: motor deficits, sensory deficit, slurred speech, abnormal cerebellar tests Skin Exam: warm, other (superficial ulcer on right shoulder) SpO2 Interpretation: normal SpO2: 100 - Course Nursing assessment & vital signs reviewed: Yes EKG Interpreted by Me: Non-specific ST Changes - Radiology Exams Chest X-ray Interpretation: Reviewed by me (no acute changes) Ordered Tests: Active Orders 24 hr Category Date Time Status EKG-ER Only STAT Care 12/10/18 00:49 Active CHEST 1 VIEW (PORTABLE) Stat Exams 12/09/18 23:49 Ordered CBC W DIFF Stat Lab 12/09/18 23:45 Completed CMP Stat Lab 12/09/18 23:45 Completed Lactic Acid Stat Lab 12/09/18 23:45 Ordered TROPONIN Q3H Lab 12/09/18 23:48 Completed TROPONIN Q3H Lab 12/10/18 02:48 Ordered TROPONIN Q3H Lab 12/10/18 05:48 Ordered TROPONIN Q3H Lab 12/10/18 08:48 Ordered TROPONIN Q3H Lab 12/10/18 11:48 Ordered UA W/RFX UR CULTURE Stat Lab 12/09/18 23:48 Ordered Medication Summary Generic Name Dose Route Start Last Admin Trade Name Freq PRN Reason Stop Dose Admin Ceftriaxone Sodium/Dextrose 1 g in 50 mls @ 100 mls/hr 12/10/18 00:52 Rocephin 1 Gm-D5w 50 Ml Bag IV 12/10/18 01:21 STAT STA Discontinued Medications Generic Name Dose Route Start Last Admin Trade Name Freq PRN Reason Stop Dose Admin Acetaminophen 650 mg 12/10/18 00:10 Tylenol 325 Mg PO 12/10/18 00:11 STAT STA Acetaminophen Confirm 12/10/18 00:22 Tylenol 325 Mg Administered 12/10/18 00:23 Dose 650 mg .ROUTE .STK-MED ONE Sodium Chloride 1,000 mls @ 999 mls/hr 12/09/18 23:45 12/10/18 00:09 Sodium Chloride 0.9% 1000 Ml IV 12/10/18 00:45 999 mls/hr .Q1H1M STA Administration Sodium Chloride Confirm 12/10/18 00:03 Sodium Chloride 0.9% 1000 Ml Administered 12/10/18 00:04 Dose 1,000 mls @ ud .ROUTE .STK-MED ONE Lab/Rad Data: Laboratory Result Diagrams 12/09/18 23:45 12/09/18 23:45 Laboratory Results 12/09/18 12/09/18 12/09/18 Range/Units 23:48 23:45 23:45 WBC 16.2 H (4.0-10.5) K/mm3 RBC 3.50 L (4.1-5.6) M/mm3 Hgb 9.4 L (12.5-18.0) gm/dl Hct 31.3 L (42-50) % MCV 89.4 (78-100) fl MCH 26.8 (26-32) pg MCHC 30.0 L (32-36) g/dl RDW 16.1 H (11.5-14.0) % Plt Count 310 (150-450) K/mm3 MPV 10.6 H (6-9.5) fl Gran % 87.8 H (36.0-66.0) % Eos # (Auto) 0.01 (0-0.5) Absolute Lymphs (auto) 1.02 (1.0-4.6) Absolute Monos (auto) 0.93 (0.0-1.3) Lymphocytes % 6.3 L (24.0-44.0) % Monocytes % 5.7 (0.0-12.0) % Eosinophils % 0.1 (0.00-5.0) % Basophils % 0.1 (0.0-0.4) % Absolute Granulocytes 14.27 H (1.4-6.9) Basophils # 0.01 (0-0.4) Sodium 147 H (137-145) mmol/L Potassium 4.1 (3.5-5.1) mmol/L Chloride 111 H (98-107) mmol/L Carbon Dioxide 21 L (22-30) mmol/L Anion Gap 19.3 H (5-15) MEQ/L BUN 42 H (9-20) mg/dL Creatinine 1.59 H (0.66-1.25) mg/dL Estimated GFR 44.9 ML/MIN Glucose 141 H (74-106) mg/dL Calcium 10.7 H (8.4-10.2) mg/dL Total Bilirubin 0.70 (0.2-1.3) mg/dL AST 12 L (17-59) U/L ALT 12 (0-50) U/L Alkaline Phosphatase 100 (38-126) U/L Troponin I 0.047 H* (0.000-0.034) ng/mL Serum Total Protein 6.5 (6.3-8.2) g/dL Albumin 3.5 (3.5-5.0) g/dL - Progress Progress: unchanged Discussed with DrJered: Adriel Hudson Will see patient in: hospital (observation) Counseled pt/family regarding: lab results, diagnosis, need for follow-up, rad results - Departure Time of Disposition: 00:54 Departure Disposition: Observation Clinical Impression: Elevated troponin I level, Decubitus ulcer of scapular region, stage 1 Condition: Fair Critical Care Time: Yes Critical Care Time(excluding separately billable procedures): 30-74 minutes Referrals: OLGA BRAGG MD [Primary Care Provider] -
[2018-12-09] MEDS ORDERED: Sodium Chloride 0.9% 1000 ML 1,000 ML IV STA (23:45)
[2018-12-10] MEDS ORDERED: Sodium Chloride 0.9% 1000 ML 1,000 ML ONE (00:03)
[2018-12-10] MEDS ORDERED: TYLENOL 325 MG PO STA (00:10)
[2018-12-10 00:14] LABS: BASOPHIL % 0.1 % (0.0-0.4); Basophil (Absolute #) 0.01 (0-0.4); Eosinophil % 0.1 % (0.00-5.0); Eosinophil (Absolute #) 0.01 (0-0.5); Granulocyte Absolute (ANC) 14.27 (1.4-6.9); Granulocytes % 87.8 % (36.0-66.0); Hematocrit 31.3 % (42-50); Hemoglobin 9.4 gm/dl (12.5-18.0); Lymphocyte (Absolute #) 1.02 (1.0-4.6); Lymphocytes % 6.3 % (24.0-44.0); Mean Cell Volume 89.4 fl (78-100); Mean Platelet Volume 10.6 fl (6-9.5); Monocyte (Absolute #) 0.93 (0.0-1.3); Monocytes % 5.7 % (0.0-12.0); Platelet Count 310 K/mm3 (150-450); Red Cell Distribution Width 16.1 % (11.5-14.0); White Blood Count 16.2 K/mm3 (4.0-10.5)
[2018-12-10 00:16] LABS: Mean Corpuscular Hemoglobin 26.8 pg (26-32)
[2018-12-10] MEDS ORDERED: TYLENOL 325 MG ONE (00:22)
[2018-12-10 00:24] LABS: ALBUMIN 3.5 g/dL (3.5-5.0); ANION GAP 19.3 MEQ/L (5-15); BILIRUBIN,TOTAL 0.7 mg/dL (0.2-1.3); Calcium 10.7 mg/dL (8.4-10.2); Creatinine 1 1.59 mg/dL (0.66-1.25); Potassium 4.1 mmol/L (3.5-5.1); Total Protein 6.5 g/dL (6.3-8.2)
[2018-12-10] MEDS ORDERED: ROCEPHIN 1 Gm-D5w 50 ml Bag** 1 G/50 ML IVPB IV STA (00:52)
[2018-12-10] MEDS ORDERED: ROCEPHIN 1 Gm-D5w 50 ml Bag** 1 G/50 ML IVPB IV ONE (01:29)
[2018-12-10] MEDS ORDERED: TYLENOL 325 MG PO PRN (01:51)
[2018-12-10] MEDS ORDERED: MILK OF MAGNESIA 30 ML PO PRN (01:51)
[2018-12-10] MEDS ORDERED: Zofran 4 MG/2 ML VIAL IV PRN (01:51)
[2018-12-10] MEDS ORDERED: MAALOX ES 30 ML UNIT DOSE PO PRN (01:51)
[2018-12-10] MEDS ORDERED: Senokot-S Tablet PO PRN (01:51)
[2018-12-10] MEDS ORDERED: Sodium Chloride 0.9% 1000 ML 1,000 ML IV SCH (04:15)
[2018-12-10] MEDS: MORPHINE SULFATE 2 MG INJ IV PRN (05:10)
[2018-12-10 06:26] LABS: BASOPHIL % 0.1 % (0.0-0.4); Basophil (Absolute #) 0.01 (0-0.4); Eosinophil % 0.1 % (0.00-5.0); Eosinophil (Absolute #) 0.01 (0-0.5); Granulocyte Absolute (ANC) 9.24 (1.4-6.9); Granulocytes % 84.7 % (36.0-66.0); Hematocrit 30.3 % (42-50); Hemoglobin 9.2 gm/dl (12.5-18.0); Lymphocyte (Absolute #) 0.88 (1.0-4.6); Lymphocytes % 8.1 % (24.0-44.0); Mean Cell Volume 88.1 fl (78-100); Mean Corpuscular Hemoglobin 26.7 pg (26-32); Mean Corpuscular Hgb Concent. 30.4 g/dl (32-36); Mean Platelet Volume 10.6 fl (6-9.5); Monocyte (Absolute #) 0.76 (0.0-1.3); Platelet Count 267 K/mm3 (150-450); Red Blood Count 3.44 M/mm3 (4.1-5.6); Red Cell Distribution Width 15.8 % (11.5-14.0); White Blood Count 10.9 K/mm3 (4.0-10.5)
[2018-12-10] MEDS ORDERED: DUONEB 0.5-3 MG/3 ml Neb IH ONE (06:43)
[2018-12-10] MEDS ORDERED: DUONEB 0.5-3 MG/3 ml Neb IH SCH (07:00)
[2018-12-10] MEDS ORDERED: PROVENTIL COMMON CANISTER IH PRN ×2 (07:00→11:16)
[2018-12-10] MEDS: DUONEB 0.5-3 MG/3 ml Neb IH SCH ×3 (07:00→20:07)
[2018-12-10 07:02] LABS: ALBUMIN 2.9 g/dL (3.5-5.0); ANION GAP 14.1 MEQ/L (5-15); BILIRUBIN,TOTAL 0.4 mg/dL (0.2-1.3); Calcium 9.9 mg/dL (8.4-10.2); Creatinine 1 1.52 mg/dL (0.66-1.25); PHOSPHOROUS 2.7 mg/dL (2.5-4.5); Potassium 3.8 mmol/L (3.5-5.1); Total Protein 5.7 g/dL (6.3-8.2)
--- NOTE | 2018-12-10 09:17 | XRAY ---
Indication: Short of breath. Comparison: November 02, 2017. Portable chest unchanged again hyperinflated with diffuse scattered calcified granulomas. No focal infiltrate, consolidation, or large effusion. Heart and mediastinal structures within normal limits again with left-sided AICD. Bony thorax intact again with mild osteopenia and degenerative changes. Impression: Stable nonacute hyperinflated chest with chronic features.
--- NOTE | 2018-12-10 09:19 | XRAY ---
Indication: Left hip pain. No known injury. Comparison: None Single portable AP left hip demonstrates patient rotated with age-appropriate osteopenia. There is moderate degenerative changes as evidenced by joint space narrowing and bony sclerosis. No other bony, articular, or soft tissue abnormalities.
[2018-12-10] MEDS ORDERED: Ecotrin 325 MG PO SCH (10:00)
[2018-12-10] MEDS ORDERED: ENOXAPARIN SODIUM SQ SCH ×2 (10:00)
[2018-12-10] MEDS ORDERED: NORCO 7.5/325 MG TAB PO PRN (11:10)
[2018-12-10] MEDS ORDERED: Ventolin Hfa MDI IH PRN (11:10)
[2018-12-10] MEDS: Protonix 40MG Tablet PO SCH (11:44)
[2018-12-10] MEDS: REQUIP 2MG TAB PO SCH (11:44)
[2018-12-10] MEDS: DELTASONE 10 MG PO SCH (11:45)
[2018-12-10] MEDS: ENTRESTO 49 MG-51 MG TABLET PO SCH ×2 (11:45→22:51)
[2018-12-10] MEDS: Dextrose 5% -0.45 NaCl 1000 ML 1,000 ML IV SCH ×3 (11:46→23:06)
[2018-12-10] MEDS ORDERED: Advair Hfa 115/21 Common canister IH SCH (12:00)
[2018-12-10] MEDS ORDERED: ADVAIR 250-50 DISKUS 14 DOSE IH SCH (12:00)
[2018-12-10] MEDS ORDERED: XARELTO 10 MG TABLET PO SCH (17:00)
[2018-12-10] MEDS: Advair Hfa 115/21 Mcg Inhaler IH SCH ×2 (19:52→20:07)
[2018-12-10] MEDS ORDERED: Sodium Chloride 0.9% 1000 ML 1,000 ML IV STA (20:01)
[2018-12-10 21:20] LABS: Appearance SLIGHTLY CLOUDY (CLEAR); Bacteria RARE /HPF (NEGATIVE); Bilirubin NEGATIVE (NEGATIVE); Blood SMALL Ery/ul (0-5); Glucose >=500 mg/dL (NEGATIVE); Ketones NEGATIVE (NEGATIVE); Leukocyte Esterase MODERATE (NEGATIVE); Mucus SLIGHT /HPF (NEGATIVE); Nitrite POSITIVE (NEGATIVE); Protein,Urine Dip NEGATIVE (Negative); Specific Gravity 1.018 (1.005-1.025); Urobilinogen NEGATIVE mg/dL (0-1); WBC 26-50 /HPF (0-5)
[2018-12-10] MEDS ORDERED: SACUBITRIL PO SCH (22:00)
[2018-12-10] MEDS ORDERED: NON-FORMULARY ITEM (Pramipexole Di-Hcl [Mirapex] 1 MG) PO SCH (22:00)
[2018-12-10] MEDS ORDERED: VALSARTAN PO SCH (22:00)
[2018-12-10] MEDS: Mirapex 0.5 MG Tablet PO SCH (22:52)
[2018-12-10] MEDS: ROCEPHIN 1 Gm-D5w 50 ml Bag** 1 G/50 ML IVPB IV SCH (22:52)
[2018-12-11] MEDS: Advair Hfa 115/21 Mcg Inhaler IH SCH ×2 (05:44→17:20)
[2018-12-11] MEDS: DUONEB 0.5-3 MG/3 ml Neb IH SCH ×4 (05:44→17:20)
[2018-12-11 06:10] LABS: ANION GAP 9.6 MEQ/L (5-15); BLOOD UREA NITROGEN 30 mg/dL (9-20); CHLORIDE 117 mmol/L (98-107); Calcium 8.6 mg/dL (8.4-10.2); Carbon Dioxide 21 mmol/L (22-30); Creatinine 1 0.96 mg/dL (0.66-1.25); Glucose 115 mg/dL (74-106); Potassium 3.4 mmol/L (3.5-5.1); SODIUM 144 mmol/L (137-145)
[2018-12-11 06:19] LABS: Hematocrit 24.2 % (42-50); Hemoglobin 7.2 gm/dl (12.5-18.0); Mean Cell Volume 90.3 fl (78-100); Mean Corpuscular Hgb Concent. 29.8 g/dl (32-36); Mean Platelet Volume 10.3 fl (6-9.5); Platelet Count 206 K/mm3 (150-450); Red Blood Count 2.68 M/mm3 (4.1-5.6); Red Cell Distribution Width 15.6 % (11.5-14.0); White Blood Count 9.1 K/mm3 (4.0-10.5)
[2018-12-11 06:20] LABS: Mean Corpuscular Hemoglobin 26.8 pg (26-32)
[2018-12-11] MEDS: DELTASONE 10 MG PO SCH (10:01)
[2018-12-11] MEDS: Protonix 40MG Tablet PO SCH (10:02)
[2018-12-11] MEDS: Dextrose 5% -0.45 NaCl 1000 ML 1,000 ML IV SCH (10:02)
[2018-12-11] MEDS: REQUIP 2MG TAB PO SCH (10:02)
[2018-12-11] MEDS: ENTRESTO 49 MG-51 MG TABLET PO SCH (11:33)
[2018-12-11 12:12] LABS: ABO TYPING AB; Antibody Screen NEGATIVE (NEGATIVE); RH TYPING NEGATIVE
[2018-12-11 12:16] LABS: CROSS MATCH (PRBC) COMPATIBLE (COMPATIBLE)
[2018-12-11] MEDS ORDERED: Sodium Chloride 0.9% 500 ML 500 ML IV SCH (12:30)
[2018-12-11] MEDS: Mirapex 0.5 MG Tablet PO SCH (22:43)
[2018-12-11] MEDS: ROCEPHIN 1 Gm-D5w 50 ml Bag** 1 G/50 ML IVPB IV SCH (22:44)
[2018-12-11 23:59] LABS: Hematocrit 31.8 % (42-50)
[2018-12-12] MEDS: Dextrose 5% -0.45 NaCl 1000 ML 1,000 ML IV SCH ×3 (01:46→21:55)
[2018-12-12] MEDS: DUONEB 0.5-3 MG/3 ml Neb IH SCH ×4 (05:43→18:40)
[2018-12-12] MEDS: Advair Hfa 115/21 Mcg Inhaler IH SCH ×2 (05:43→18:43)
[2018-12-12 06:10] LABS: Hematocrit 31.4 % (42-50); Mean Cell Volume 85.6 fl (78-100); Mean Corpuscular Hemoglobin 27.2 pg (26-32); Mean Corpuscular Hgb Concent. 31.8 g/dl (32-36); Mean Platelet Volume 10.4 fl (6-9.5); Platelet Count 160 K/mm3 (150-450); Red Blood Count 3.67 M/mm3 (4.1-5.6); Red Cell Distribution Width 15.9 % (11.5-14.0); White Blood Count 5.3 K/mm3 (4.0-10.5)
[2018-12-12 06:32] LABS: ALBUMIN 2.3 g/dL (3.5-5.0); ALKALINE PHOSPHATASE 54 U/L (38-126); ANION GAP 10.8 MEQ/L (5-15); BLOOD UREA NITROGEN 19 mg/dL (9-20); CHLORIDE 113 mmol/L (98-107); Calcium 8.3 mg/dL (8.4-10.2); Carbon Dioxide 20 mmol/L (22-30); Glucose 113 mg/dL (74-106); Potassium 3.5 mmol/L (3.5-5.1); SGOT/AST 12 U/L (17-59); SGPT/ALT 9 U/L (0-50); SODIUM 140 mmol/L (137-145); Total Protein 4.7 g/dL (6.3-8.2)
--- NOTE | 2018-12-12 09:07 | PCM.NOTE ---
Date and Time: 12/12/18901 Subjective Assessment: Pt is SOb with any activity. He is talking about something in his arm this morning (L) but neither his or I can discern what he is talking about. He is NPO for surgical evaluation this morning. Apparently had a CVA about 5 months ago and hasn't eaten well since then. Has not been able to walk for the past 1 mo (using power chair). - Review of Systems Constitutional: No Fever Respiratory: Short Of Breath Objective Exam General Appearance: no apparent distress, alert, cachetic Neurologic Exam: cooperative, other (unable to discern if he is oriented speech is slurred and pt is edentulous) Skin Exam: normal color, warm, dry, No rash Respiratory Exam: diminished breath sounds, No crackles/rales, No rhonchi, No wheezing Cardiovascular Exam: regular rate/rhythm, No normal heart sounds (diminished), No murmur Gastrointestinal/Abdomen Exam: soft, normal bowel sounds, tenderness ( generalized), No distention, No mass, No guarding, No rebound Extremity Exam: No pedal edema, No swelling OBJECTIVE DATA Vital Signs: Vital Signs - 24 hr Temp Pulse Resp BP Pulse Ox 12/12/18 07:06 97.4 F 89 18 94/51 97 12/12/18 05:43 82 22 98 12/12/18 05:00 97 12/12/18 04:00 97.0 F 85 18 121/61 97 12/12/18 01:00 97 12/11/18 23:55 97.9 F 98 H 18 105/59 99 12/11/18 21:00 97 12/11/18 19:46 99.1 F 94 H 22 89/48 97 12/11/18 17:20 78 18 99 12/11/18 17:00 98 12/11/18 16:00 98.7 F 101 H 18 97/53 97 12/11/18 13:46 90 20 98 12/11/18 13:00 97 12/11/18 12:00 97.2 F 107 H 18 105/49 96 12/11/18 10:01 84 18 98 Oxygen-Last 24 hours O2 Percentage 3 Liters = 32% O2 Percentage 2 Liters = 28% O2 Percentage 2 Liters = 28% O2 Percentage 2 Liters = 28% O2 Percentage 2 Liters = 28% Pain Assessment - Last Documented Pain Intensity 3 Pain Scale Used 0-10 Pain Scale,FLACC Intake and Output: Intake & Output 12/09/18 12/10/18 12/11/18 12/12/18 11:59 11:59 11:59 11:59 Intake Total 4969 3681 Output Total 315 680 Balance 4658 7673 Weight 41.7 kg 42 kg 42.2 kg Lab Results: Lab Results-Last 24 Hours 12/11/18 12/11/18 12/11/18 Range/Units 10:50 10:50 10:50 WBC (4.0-10.5) K/mm3 RBC (4.1-5.6) M/mm3 Hgb (12.5-18.0) gm/dl Hct (42-50) % MCV (78-100) fl MCH (26-32) pg MCHC (32-36) g/dl RDW (11.5-14.0) % Plt Count (150-450) K/mm3 MPV (6-9.5) fl Sodium (137-145) mmol/L Potassium (3.5-5.1) mmol/L Chloride (98-107) mmol/L Carbon Dioxide (22-30) mmol/L Anion Gap (5-15) MEQ/L BUN (9-20) mg/dL Creatinine (0.66-1.25) mg/dL Estimated GFR ML/MIN Glucose (74-106) mg/dL Calcium (8.4-10.2) mg/dL Total Bilirubin (0.2-1.3) mg/dL AST (17-59) U/L ALT (0-50) U/L Alkaline Phosphatase (38-126) U/L Serum Total Protein (6.3-8.2) g/dL Albumin (3.5-5.0) g/dL ABO Group AB Rh Factor NEGATIVE Antibody Screen NEGATIVE (NEGATIVE) Crossmatch COMPATIBLE COMPATIBLE (COMPATIBLE) 12/11/18 12/12/18 12/12/18 Range/Units 23:55 05:45 05:45 WBC 5.3 (4.0-10.5) K/mm3 RBC 3.67 L (4.1-5.6) M/mm3 Hgb 10.0 L D 10.0 L (12.5-18.0) gm/dl Hct 31.8 L 31.4 L (42-50) % MCV 85.6 (78-100) fl MCH 27.2 (26-32) pg MCHC 31.8 L (32-36) g/dl RDW 15.9 H (11.5-14.0) % Plt Count 160 (150-450) K/mm3 MPV 10.4 H (6-9.5) fl Sodium 140 (137-145) mmol/L Potassium 3.5 (3.5-5.1) mmol/L Chloride 113 H (98-107) mmol/L Carbon Dioxide 20 L (22-30) mmol/L Anion Gap 10.8 (5-15) MEQ/L BUN 19 (9-20) mg/dL Creatinine 0.80 (0.66-1.25) mg/dL Estimated GFR > 60.0 ML/MIN Glucose 113 H (74-106) mg/dL Calcium 8.3 L (8.4-10.2) mg/dL Total Bilirubin 0.30 (0.2-1.3) mg/dL AST 12 L (17-59) U/L ALT 9 (0-50) U/L Alkaline Phosphatase 54 (38-126) U/L Serum Total Protein 4.7 L (6.3-8.2) g/dL Albumin 2.3 L (3.5-5.0) g/dL ABO Group Rh Factor Antibody Screen (NEGATIVE) Crossmatch (COMPATIBLE) Assessment/Plan (1) COPD exacerbation Current Visit: No Status: Acute Assessment & Plan: on day #3 Code(s): J44.1 - CHRONIC OBSTRUCTIVE PULMONARY DISEASE W (ACUTE) EXACERBATION (2) Status post CVA Current Visit: Yes Status: Chronic Code(s): Z86.73 - PRSNL HX OF TIA (TIA), AND CEREB INFRC W/O RESID DEFICITS (3) Malnutrition Current Visit: Yes Status: Chronic Qualifiers: Malnutrition type: unspecified type Qualified Code(s): E46 - Unspecified protein-calorie malnutrition Code(s): E46 - UNSPECIFIED PROTEIN-CALORIE MALNUTRITION (4) Decubitus ulcer of scapular region, stage 1 Current Visit: Yes Status: Acute Code(s): L89.101 - PRESSURE ULCER OF UNSPECIFIED PART OF BACK, STAGE 1 (5) CAD (coronary artery disease) Current Visit: No Status: Chronic Assessment & Plan: BP have been low, 84/48 this morning Code(s): I25.10 - ATHSCL HEART DISEASE OF [place] CORONARY ARTERY W/O ANG PCTRS
--- NOTE | 2018-12-12 09:32 | HP ---
CHIEF COMPLAINT: Diminished ability to move and severe cachexia, left shoulder decubitus ulcer. HISTORY OF PRESENT ILLNESS: The patient is a 77 year-old white male patient who had a stroke approximately four months ago. He has been deteriorating over the past week where he stopped eating and drinking. The family brought him into the hospital severely cachectic. He was able to speak but mumbles and it is difficult for me to tell what he is saying although his granddaughter is there and helps interprets for me. PAST MEDICAL/SURGICAL HISTORY: HOME MEDICATIONS: Currently includes Albuterol, aspirin, Atorvastatin, famotidine, hydrocodone, nitroglycerin PRN, pantoprazole, prednisone, Requip, Entresto and hydrochlorothiazide. ALLERGIES: SINGULAIR. PHYSICAL EXAMINATION: His vital signs on admission showed his temperature 97.6F, pulse 123, respiratory rate 18, blood pressure 114/73. HEENT: Normocephalic, atraumatic. Pupils equal round reactive to light. Extraocular movements intact. Oropharynx is pink and moist. The patient is also on oxygen at 2 liters nasal cannula at home. NECK: Supple. CHEST: Reveals easily seen implantable pacemaker defibrillator battery. Clear to auscultation. HEART: Regular rate and rhythm currently. No murmurs heard. ABDOMEN: Scaphoid. No palpable masses. EXTREMITIES: Revealed the large decubitus ulcer on the back of the shoulder. There is clubbing present as well. LAB DATA AND TESTS: Revealed glucose of 141, BUN 32, creatinine 1.59. Sodium slightly high at 147. Liver enzymes are normal. Troponin was measured a 0.047. White blood cell count 16,200, hemoglobin 9.4, PLT 310,000 with what appears to be a left shift with 87.8% granulocytes. The patient's EKG showed an essential normal sinus rhythm at 87 beats/minute. There is Q-wave inversion across the lateral leads but otherwise appears to be essentially normal. ASSESSMENT: A patient with severe cachexia, poor nutrition post-CVA. We will obtain a swallowing study. We spoke to the family about IV nutrition and they are making a decision on management as far as being aggressive or nonaggressive with swallowing evaluation. If he fails I suspect will have to have a discussion about possible G-tube placement versus Hospice care with palliative care of pain as the patient's major reason for being here otherwise is his pain.
[2018-12-12] MEDS: REQUIP 2MG TAB PO SCH (11:37)
[2018-12-12] MEDS: MEDICATION ON HOLD MC SCH (11:37)
[2018-12-12] MEDS: DELTASONE 10 MG PO SCH (11:37)
[2018-12-12] MEDS: Protonix 40MG Tablet PO SCH (11:37)
[2018-12-12] MEDS ORDERED: Ativan 2 MG/1 ML VIAL IV ONE (14:25)
[2018-12-12] MEDS: ROCEPHIN 1 Gm-D5w 50 ml Bag** 1 G/50 ML IVPB IV SCH (21:55)
[2018-12-12] MEDS: Mirapex 0.5 MG Tablet PO SCH (21:55)
[2018-12-13] MEDS: Advair Hfa 115/21 Mcg Inhaler IH SCH (05:25)
[2018-12-13] MEDS: DUONEB 0.5-3 MG/3 ml Neb IH SCH ×3 (05:25→14:33)
[2018-12-13] MEDS: Dextrose 5% -0.45 NaCl 1000 ML 1,000 ML IV SCH (08:57)
[2018-12-13] MEDS: REQUIP 2MG TAB PO SCH (10:36)
[2018-12-13] MEDS: MORPHINE SULFATE 2 MG INJ IV PRN (10:36)
[2018-12-13] MEDS: Protonix 40MG Tablet PO SCH (10:36)
[2018-12-13] MEDS: DELTASONE 10 MG PO SCH (10:36)
--- NOTE | 2018-12-13 12:34 | PCM.DS ---
Discharge Summary Date of Admission: 12/10/18 16:00 Admitting Physician: OLGA BRAGG Consults: Consults on Case 12/11/18 10:20 Consult Surgery ROUTINE Primary Care Provider: OLGA BRAGG Allergies Allergies montelukast [From Singulair] Allergy (Verified 12/10/18 02:31) Vomiting Hospital Summary - Hospital Course Hospital Course: Pt is a 77 yo male pt of Dr. Bragg with recent hx of CVA (within the past 6 mo) , COPD, TOB abuse, GERD, OA, CAD, cardiomyopathy, difibrillator in situ, and malnutrition with gait abnormity who was admitted through the ER with COPD exacerbation. Swallow study discerned need for pureed liquids. Per he has lost weight since his stroke - didn't want to eat. She cares for him at home - stopped her own breast cancer treatment in August in order to help care for him. He has been unable to get up for about the past one month. Is having L hip pain. Found to have decubitus ulcer on scapula. Due to state of malnutrition he was set up for G-tube, but there is concern over his abililty to tolerate the procdure. He was eating well since admission , so I discussed with pt and his and will do a swing bed stay, treat the COPD, see if he can build his strength up while being cared for at the hospital. WBC on admission were 16.2 - currently 5.3. He did receive 2 units PRBC for hgb of 7.1. and since then hgb has been stable at 10.0. eGFR 44.9 at admission, but now > 60. Pt had some mildly elevated troponins after admission. Nitrites positive on UA after admission. CXR was nonacute. Hip XR with age-appropriate osteopenia,moderate degenerative changes, no fracture. - Vitals & Intake/Output Vital Signs: Vital Signs Temperature 97.6 F 12/13/18 07:00 Pulse Rate 77 12/13/18 10:14 Respiratory Rate 20 12/13/18 10:14 Blood Pressure 101/55 12/13/18 07:00 O2 Sat by Pulse Oximetry 96 12/13/18 10:14 Oxygen-Last Documented O2 Percentage 2 Liters = 28% Intake & Output: Intake & Output 12/10/18 12/11/18 12/12/1819 11:59 11:59 11:59 11:59 Intake Total 4985 3681 120 Output Total 315 600 250 Balance 4670 3081 -130 Weight 41.7 kg 42 kg 42.2 kg 50.7 kg - Lab Result Diagrams: 12/12/18 05:45 12/12/18 05:45 Micro Results-Entire Visit: Microbiology 12/09/18 21:08 Urine Culture - Final Urine, Indwelling Catheter Pseudomonas Aeruginosa - Procedures and Test Procedures and Tests throughout Hospitalization: Therapy Orders & Screens 12/10/18 01:51 EKG Q8HX2,QAMX3,PRN Comment: Oxygen Nasal Cannula 2 lpm Comment: 12/10/18 03:21 OT Screen per Nursing Assess ONCE Comment: Protocol Order Physician Instructions: Greater than 3 points order OT Admission Screening Reason For Exam: Triggered on Admission Diagnosis: elevated troponin Open Wound/Cellutlitis/Pressure Ulcers: Yes Acute Fx/ORIF/Change in wt bearing status: Yes Severe MUSCULOSKELETAL pain: Yes ADL Dysfunction: Yes Acute CVA w/Hemiparesis/Hemiplegia: No Decreased Functional Mobility/Strength: Yes Sprain/Strain: No Acute Post-op Mobility Dysfunction: No Total Points: 19 PT Screen per Nursing Assess ONCE Comment: Protocol Order Physician Instructions: Greater than 3 points order PT Admission Screenin Reason For Exam: Triggered on Admission Diagnosis: elevated troponin Open Wound/Cellutlitis/Pressure Ulcers: Yes Acute Fx/ORIF/Change in wt bearing status: Yes Severe MUSCULOSKELETAL pain: Yes ADL Dysfunction: Yes Acute CVA w/Hemiparesis/Hemiplegia: No Decreased Functional Mobility/Strength: Yes Sprain/Strain: No Acute Post-op Mobility Dysfunction: No Total Points: 19 RT Screen per Nursing Assess ONCE Comment: Protocol Order Physician Instructions: Greater than 3 points order RT Admission Screen Reason For Exam: Triggered on Admission Diagnosis: elevated troponin Diagnosis: elevated troponin Pneumonia: No Home O2: Yes Asthma: No CHF: Yes Home CPAP/BIPAP: No Home Nebs/MDI: Yes Total Points: 13 ST Screen per Nursing Assess once Comment: Protocol Order Physician Instructions: Greater than [address] Admission Screening Reason For Exam: Triggered on Admission Diagnosis: elevated troponin CVA/Dyshpagia/Aphasia: Yes Cognitive Deficits: No Dehydration/Nutrition Deficit: Yes Reflux: No Oral-Motor Difficulties: Yes Pneumonia: No Assisted Resident: No Total Points: 13 12/10/18 03:56 Respiratory Therapy Assessment DAILY Comment: Diagnosis: elevated troponin 12/10/18 07:00 Respiratory MDI BID Comment: Diagnosis: elevated troponin 12/10/18 07:04 EKG ROUTINE Comment: Diagnosis: elevated troponin 12/10/18 09:01 ST Eval & Treat (MD Order) .as ordered Comment: Ann called at home and notified of consult. Physician Instructions: Reason For Exam: Evaluate: Yes Treat: Yes Reason for Eval: stroke 3 months ago. Difficulty swallowing. weight loss Diagnosis: elevated troponin 12/10/18 09:02 PT Eval & Treat (MD Order) ROUTINE Reason for Eval:: skin breakdown/decubes Diagnosis: elevated troponin 12/10/18 19:00 Respiratory MDI BID Comment: ADVAIR 115/21 2 PUFFS BID Diagnosis: elevated troponin 12/11/18 05:00 EKG DAILY Comment: Diagnosis: elevated troponin 12/12/18 05:00 EKG DAILY Comment: Diagnosis: elevated troponin 12/13/18 05:00 EKG DAILY Comment: Diagnosis: elevated troponin Discharge Exam General Appearance: no apparent distress, alert Neurologic Exam: cooperative, other (speech slurred as usual) Skin Exam: normal color, warm, dry, No rash Respiratory Exam: diminished breath sounds (fair air exchange), wheezing (fair air exchange) Cardiovascular Exam: regular rate/rhythm, normal heart sounds, No murmur Extremity Exam: other (on R side as usual with feet pulled up) Back Exam: No rash Final Diagnosis/Problem List - Final Discharge Diagnosis/Problem (1) COPD exacerbation Current Visit: No Status: Acute Assessment & Plan: Would like pt to stay on rocephin until he shows more improvement. Code(s): J44.1 - CHRONIC OBSTRUCTIVE PULMONARY DISEASE W (ACUTE) EXACERBATION (2) Status post CVA Current Visit: Yes Status: Chronic Assessment & Plan: d/c to swing bed today. will order PT Code(s): Z86.73 - PRSNL HX OF TIA (TIA), AND CEREB INFRC W/O RESID DEFICITS (3) Malnutrition Current Visit: Yes Status: Chronic Assessment & Plan: Will see if appropriate feeding in hospital can lead to improvement in nutritional status. Daily weights pls. Code(s): E46 - UNSPECIFIED PROTEIN-CALORIE MALNUTRITION (4) Decubitus ulcer of scapular region, stage 1 Current Visit: Yes Status: Acute Code(s): L89.101 - PRESSURE ULCER OF UNSPECIFIED PART OF BACK, STAGE 1 (5) CAD (coronary artery disease) Current Visit: No Status: Chronic Code(s): I25.10 - ATHSCL HEART DISEASE OF [place] CORONARY ARTERY W/O ANG PCTRS (6) Osteoarthritis, hip, bilateral Current Visit: Yes Status: Chronic Code(s): M16.0 - BILATERAL PRIMARY OSTEOARTHRITIS OF HIP - Discharge Disposition: Swing Bed @ [facility] Condition: Fair Prescriptions: No Action PANTOPRAZOLE 40 mg Tablet [Protonix 40MG Tablet] 40 mg PO QAM Ropinirole 2Mg [Requip 2Mg Tab] 2 mg PO DAILY Prednisone 10 mg [Deltasone 10 mg] 1 tab PO DAILY Hydrocodone Bit/Acetaminophen [[place] 7.5-325 Tablet] 1 each PO Q6HPRN PRN PRN Reason: Pain Fluticasone/Salmeterol [Advair 250-50 Diskus] 2 each IH BID Atorvastatin Calcium [Lipitor] 1 tablet PO DAILY Aspirin 81 mg PO DAILY Albuterol Sulfate [Ventolin Hfa] 1 gm IH UD PRN PRN Reason: Shortness Of Breath Nitroglycerin 0.4 mg Tablet [Nitrostat 0.4 MG Tablet] 0.4 mg SL UD PRN PRN Reason: Chest Pain Albuterol/Ipratropium 3ml Neb* [DUONEB 0.5-3 MG/3 ml Neb] 3 ml IH QID PRN # 100 ampul.neb PRN Reason: Shortness Of Breath Rivaroxaban 10 mg Tablet [Xarelto 10 mg Tablet] 20 mg PO DINNER Spironolactone 25 mg [Aldactone 25 MG] 25 mg PO DAILY Sacubitril/Valsartan [Entresto 97 mg-103 mg Tablet] 1 each PO BID Diltiazem HCl [Cartia Xt] 180 mg PO DAILY Meclizine HCl 25 mg [Antivert 25 mg] 25 mg PO TIDPRN Pramipexole Di-HCl [Mirapex] 1 mg PO HS Follow up with: OLGA BRAGG MD [Primary Care Provider] - 1 Week
[2018-12-13 12:37] VITALS: BP 104/58
[2018-12-13 14:39] VITALS: PULSE 103; O2SAT 97
[2018-12-13] MEDS: MEDICATION ON HOLD MC SCH (14:45)
== END 2018-12-13 14:44 | disposition swing bed (61) | DRG 191 ==
LOC: ED 23:12 → MED SURG 12-10 01:46 → OBSVTOIN 12-10 16:00
PROVIDERS: ADMIT Family Medicine; ATTEND Family Medicine
DX: J44.1 Chronic obstructive pulmonary disease with (acute) exacerbation (principal); E46 Unspecified protein-calorie malnutrition; R26.9 Unspecified abnormalities of gait and mobility; J44.9 Chronic obstructive pulmonary disease, unspecified; R77.8 Other specified abnormalities of plasma proteins; L89.111 Pressure ulcer of right upper back, stage 1; M16.0 Bilateral primary osteoarthritis of hip; I95.9 Hypotension, unspecified; D64.9 Anemia, unspecified; I25.10 Atherosclerotic heart disease of native coronary artery without angina pectoris; M85.88 Other specified disorders of bone density and structure, other site; Z79.899 Other long term (current) drug therapy; I25.2 Old myocardial infarction; Z86.73 Personal history of transient ischemic attack (TIA), and cerebral infarction without residual deficits; Z95.810 Presence of automatic (implantable) cardiac defibrillator; M25.552 Pain in left hip; Z99.81 Dependence on supplemental oxygen
CPT/HCPCS: 36415; 36430; 71045; 73501; 80048; 80053; 80061; 81001; 83605; 83721; 84100; 84484; 85014; 85018; 85025; 85027; 86850; 86900; 86901; 86922; 87077; 87086; 87186; 92610; 93005; 94640; 94760; 94762; 96360; 96365; 99285; G0008; P9016; 90662; J0696; J2270; A9270-GY

== ENCOUNTER 2018-12-13 13:38 | Inpatient (IN) | payer MEDICARE ==
[2018-12-13] MEDS ORDERED: PROVENTIL COMMON CANISTER IH PRN (14:56)
[2018-12-13] MEDS ORDERED: MORPHINE SULFATE 2 MG INJ IV PRN (14:56)
[2018-12-13] MEDS ORDERED: Aplisol ID ONE (14:56)
[2018-12-13] MEDS ORDERED: Senokot-S Tablet PO PRN (14:56)
[2018-12-13] MEDS ORDERED: TYLENOL 325 MG PO PRN (14:56)
[2018-12-13] MEDS ORDERED: MAALOX ES 30 ML UNIT DOSE PO PRN (14:56)
[2018-12-13] MEDS ORDERED: MILK OF MAGNESIA 30 ML PO PRN (14:56)
[2018-12-13] MEDS ORDERED: Zofran 4 MG/2 ML VIAL IV PRN (14:56)
[2018-12-13] MEDS ORDERED: Ventolin Hfa MDI IH PRN (15:45)
[2018-12-13] MEDS: Nicoderm CQ 21 MG TOP SCH (20:02)
[2018-12-13] MEDS: Dextrose 5% -0.45 NaCl 1000 ML 1,000 ML IV SCH (20:02)
[2018-12-13] MEDS: Advair Hfa 115/21 Mcg Inhaler IH SCH (20:44)
[2018-12-13] MEDS: DUONEB 0.5-3 MG/3 ml Neb IH SCH (20:44)
[2018-12-13] MEDS: Mirapex 0.5 MG Tablet PO SCH (23:11)
[2018-12-13] MEDS: XARELTO 10 MG TABLET PO SCH (23:11)
[2018-12-13] MEDS: ROCEPHIN 1 Gm-D5w 50 ml Bag** 1 G/50 ML IVPB IV SCH (23:11)
[2018-12-13] MEDS: ENTRESTO 49 MG-51 MG TABLET PO SCH (23:12)
[2018-12-14] MEDS: DUONEB 0.5-3 MG/3 ml Neb IH SCH ×4 (05:29→20:30)
[2018-12-14] MEDS: Advair Hfa 115/21 Mcg Inhaler IH SCH ×2 (05:29→20:30)
[2018-12-14] MEDS: Dextrose 5% -0.45 NaCl 1000 ML 1,000 ML IV SCH ×3 (06:54→17:15)
[2018-12-14] MEDS: DELTASONE 10 MG PO SCH (08:59)
[2018-12-14] MEDS: REQUIP 2MG TAB PO SCH (08:59)
[2018-12-14] MEDS: Protonix 40MG Tablet PO SCH (08:59)
[2018-12-14] MEDS: ENTRESTO 49 MG-51 MG TABLET PO SCH ×2 (08:59→23:22)
[2018-12-14] MEDS ORDERED: MEDICATION ON HOLD MC SCH (10:00)
[2018-12-14] MEDS: Sodium Chloride 0.9% 500 ML 500 ML IV SCH ×2 (17:18→17:19)
[2018-12-14] MEDS: Nicoderm CQ 21 MG TOP SCH (20:34)
[2018-12-14] MEDS: ROCEPHIN 1 Gm-D5w 50 ml Bag** 1 G/50 ML IVPB IV SCH (23:21)
[2018-12-14] MEDS: XARELTO 10 MG TABLET PO SCH (23:22)
[2018-12-14] MEDS: Mirapex 0.5 MG Tablet PO SCH (23:22)
[2018-12-15] MEDS: Dextrose 5% -0.45 NaCl 1000 ML 1,000 ML IV SCH ×2 (02:50→14:05)
[2018-12-15] MEDS: DUONEB 0.5-3 MG/3 ml Neb IH SCH ×6 (07:38→20:15)
[2018-12-15] MEDS: DELTASONE 10 MG PO SCH (10:26)
[2018-12-15] MEDS: REQUIP 2MG TAB PO SCH (10:26)
[2018-12-15] MEDS: Protonix 40MG Tablet PO SCH (10:26)
[2018-12-15] MEDS: ENTRESTO 49 MG-51 MG TABLET PO SCH ×2 (10:27→20:34)
[2018-12-15] MEDS: Advair Hfa 115/21 Mcg Inhaler IH SCH ×2 (10:45→20:15)
[2018-12-15] MEDS: Mirapex 0.5 MG Tablet PO SCH (20:32)
[2018-12-15] MEDS: XARELTO 10 MG TABLET PO SCH (20:33)
[2018-12-15] MEDS: ROCEPHIN 1 Gm-D5w 50 ml Bag** 1 G/50 ML IVPB IV SCH (20:33)
[2018-12-15] MEDS: Nicoderm CQ 21 MG TOP SCH (20:36)
[2018-12-16] MEDS: Dextrose 5% -0.45 NaCl 1000 ML 1,000 ML IV SCH ×3 (00:32→22:29)
[2018-12-16] MEDS: DUONEB 0.5-3 MG/3 ml Neb IH SCH ×4 (07:37→19:25)
[2018-12-16] MEDS: Advair Hfa 115/21 Mcg Inhaler IH SCH ×2 (07:41→19:25)
[2018-12-16] MEDS: DELTASONE 10 MG PO SCH (10:59)
[2018-12-16] MEDS: ENTRESTO 49 MG-51 MG TABLET PO SCH ×2 (10:59→22:33)
[2018-12-16] MEDS: REQUIP 2MG TAB PO SCH (10:59)
[2018-12-16] MEDS: Protonix 40MG Tablet PO SCH (10:59)
--- NOTE | 2018-12-16 15:26 | PCM.NOTE ---
Date and Time: 12/16/18 1520 Subjective Assessment: Pt would like to go home. I saw the patient around 0820 this morning, but I just recently spoke with PT. The pt has been walking about 50 ft in the [place] with one assist. Pt has been eating well. Still treating the Stage III decubitus ulcer at the scapula. - Review of Systems Constitutional: No Fever Abdominal/Gastrointestinal: No Vomiting Objective Exam General Appearance: no apparent distress, alert Neurologic Exam: cooperative, other (slurred speech) Skin Exam: normal color, warm, dry, other (did not examine ulcer), No rash Respiratory Exam: diminished breath sounds, prolonged expirations, wheezing ( scattered), No crackles/rales, No rhonchi Cardiovascular Exam: regular rate/rhythm, normal heart sounds, No murmur Extremity Exam: No pedal edema, No swelling OBJECTIVE DATA Vital Signs: Vital Signs - 24 hr Temp Pulse Resp BP Pulse Ox 12/16/18 15:12 90 18 98 12/16/18 10:42 96 H 20 98 12/16/18 07:42 85 20 97 12/16/18 07:00 96 F 83 20 135/72 96 12/15/18 20:15 85 22 98 12/15/18 19:00 97.9 F 90 20 116/86 97 12/15/18 15:59 92 H 20 93 L Oxygen-Last 24 hours O2 Percentage 2 Liters = 28% Oxygen Flowrate (L/min)-RT 2 Pain Assessment - Last Documented Pain Intensity 0 Pain Scale Used [facility] Intake and Output: Intake & Output 12/14/18 12/15/18 12/16/18 12/17/18 11:59 11:59 11:59 11:59 Intake Total 1507 3919 1896 120 Output Total 3200 2100 1950 1250 Balance -9473 2532 -72 -3864 Weight 65.8 kg 50.1 kg 53.4 kg 53.4 kg Multi-Disciplinary Progress Notes: Multi-Disciplinary Progress Notes 12/16/18 14:42 Physical Therapy Note by Karin Hansen PATIENT CAN NOW TOLERATE 50' WALK WITH MODERATE ASSIST +1 AND A ROLLER WALKER. 2 + DYSPNEA WITH EXERTION ON ROOM AIR, BUT O2 SATS DO NOT SEVERELY DEPLETE - > 92 % AFTER WALK. IS SPENDING MORE TIME UP OUT OF BED IN BEDSIDE CHAIR IN DAILY ROUTINE. STAGE III WOUND POSTERIOR RIGHT SHOULDER AGAIN DEBRIDED TODAY WITH FORCEPS AND SCISSORS - THICK YELLOW SLOUGH SOFTENING WITH CALCIUM ALGINATE PRIMARY DRESSING ; MEPILEX FOAM COVER DRESSING WITH FOAM TAPE ANCHOR. DRESSING TO STAY IN TACT OVER THE WEEKEND. Initialized on 12/16/18 14:42 - END OF NOTE Assessment/Plan (1) COPD exacerbation Current Visit: No Status: Acute Assessment & Plan: On IV rocephin day #7 - would finish 10d on the antibiotic. Code(s): J44.1 - CHRONIC OBSTRUCTIVE PULMONARY DISEASE W (ACUTE) EXACERBATION (2) Decubitus ulcer of scapular region, stage 3 Current Visit: Yes Status: Acute Assessment & Plan: Would benefit from daily dressing for the next few days to a week. Code(s): L89.103 - PRESSURE ULCER OF UNSPECIFIED PART OF BACK, STAGE 3 (3) DVT prophylaxis Current Visit: No Status: Chronic Assessment & Plan: on xarelto Code(s): EPY2403 - (4) HTN (hypertension) Current Visit: No Status: Acute Qualifiers: Hypertension type: essential hypertension Qualified Code(s): I10 - Essential (primary) hypertension Code(s): I10 - ESSENTIAL (PRIMARY) HYPERTENSION (5) Malnutrition Current Visit: No Status: Chronic Qualifiers: Malnutrition type: protein-calorie malnutrition Assessment & Plan: since his stroke several months ago. Eating much better here. Honey- thickened. The original plan was to place a G-tube, but I spoke with his and pt, discussed the serious risks of having surgery, and they opted for swing bed stay to see if he could gain strength in the hospital. His 's nutritional status is not that great either, and I don't know if they have access to appropriate food at home (especially the patient). Code(s): E46 - UNSPECIFIED PROTEIN-CALORIE MALNUTRITION (6) Osteoarthritis, hip, bilateral Current Visit: No Status: Chronic Qualifiers: Osteoarthritis type: primary Qualified Code(s): M16.0 - Bilateral primary osteoarthritis of hip Assessment & Plan: When he came in, was not even able to shift position in bed due to pain. Has improved tremendously with PT and nursing. Code(s): M16.0 - BILATERAL PRIMARY OSTEOARTHRITIS OF HIP (7) Status post CVA Current Visit: No Status: Chronic Code(s): Z86.73 - PRSNL HX OF TIA (TIA), AND CEREB INFRC W/O RESID DEFICITS
[2018-12-16] MEDS: NORCO 7.5/325 MG TAB PO PRN (18:08)
[2018-12-16] MEDS: PATIENT OWN MEDICATION PO SCH (18:09)
[2018-12-16] MEDS: ROCEPHIN 1 Gm-D5w 50 ml Bag** 1 G/50 ML IVPB IV SCH (22:29)
[2018-12-16] MEDS: Mirapex 0.5 MG Tablet PO SCH (22:30)
[2018-12-16] MEDS: XARELTO 10 MG TABLET PO SCH (22:30)
[2018-12-17] MEDS: Nicoderm CQ 21 MG TOP SCH (03:48)
[2018-12-17] MEDS: NORCO 7.5/325 MG TAB PO PRN ×2 (03:58→17:16)
[2018-12-17] MEDS: DUONEB 0.5-3 MG/3 ml Neb IH SCH ×4 (08:14→19:36)
[2018-12-17] MEDS: Advair Hfa 115/21 Mcg Inhaler IH SCH ×2 (08:15→19:36)
[2018-12-17] MEDS: Protonix 40MG Tablet PO SCH (09:45)
[2018-12-17] MEDS: DELTASONE 10 MG PO SCH (09:45)
[2018-12-17] MEDS: Dextrose 5% -0.45 NaCl 1000 ML 1,000 ML IV SCH ×2 (09:45→19:57)
[2018-12-17] MEDS: REQUIP 2MG TAB PO SCH (09:45)
[2018-12-17] MEDS: ENTRESTO 49 MG-51 MG TABLET PO SCH ×2 (09:46→22:01)
[2018-12-17] MEDS: PATIENT OWN MEDICATION PO SCH (09:46)
--- NOTE | 2018-12-17 11:56 | PCM.NOTE ---
Date and Time: 12/17/18 1152 Subjective Assessment: patient seen today, doing ok - Review of Systems Constitutional: No Fever, No Chills Eyes: No Symptoms Ears, Nose, & Throat: No Symptoms Respiratory: No Cough, No Short Of Breath Cardiac: No Chest Pain, No Edema, No Syncope Abdominal/Gastrointestinal: No Abdominal Pain, No Nausea, No Vomiting, No Diarrhea Genitourinary Symptoms: No Dysuria Musculoskeletal: No Back Pain, No Neck Pain Skin: Decubiti, No Rash Neurological: No Dizziness, No Focal Weakness, No Sensory Changes Psychological: No Symptoms Endocrine: No Symptoms Hematologic/Lymphatic: No Symptoms Immunological/Allergic: No Symptoms All Other Systems: Reviewed and Negative Objective Exam General Appearance: no apparent distress Neurologic Exam: alert Skin Exam: normal color Eye Exam: PERRL, EOMI Ears, Nose, Throat Exam: normal ENT inspection Neck Exam: normal inspection Cardiovascular Exam: regular rate/rhythm Gastrointestinal/Abdomen Exam: soft Extremity Exam: other (no new ulcer) Back Exam: other (decubitus ulcer on scapula) OBJECTIVE DATA Vital Signs: Vital Signs - 24 hr Temp Pulse Resp BP Pulse Ox 12/17/18 11:41 91 H 18 99 12/17/18 10:29 97.7 F 90 20 122/66 95 12/17/18 08:15 90 20 97 12/17/18 07:12 97.8 F 90 20 122/66 97 12/16/18 20:18 99 H 18 97 12/16/18 19:00 98.4 F 60 17 124/77 99 12/16/18 15:12 90 18 98 Pain Assessment - Last Documented Pain Intensity 0 Pain Scale Used 0-10 Pain Scale Intake and Output: Intake & Output 12/14/18 12/15/18 12/16/18 12/17/18 11:59 11:59 11:59 11:59 Intake Total 1507 3919 1896 2505 Output Total 3200 2100 1950 2250 Balance -1693 1819 -54 255 Weight 65.8 kg 50.1 kg 53.4 kg 56.5 kg Multi-Disciplinary Progress Notes: Multi-Disciplinary Progress Notes 12/16/18 14:42 Physical Therapy Note by Karin Hansen PATIENT CAN NOW TOLERATE 50' WALK WITH MODERATE ASSIST +1 AND A ROLLER WALKER. 2 + DYSPNEA WITH EXERTION ON ROOM AIR, BUT O2 SATS DO NOT SEVERELY DEPLETE - > 92 % AFTER WALK. IS SPENDING MORE TIME UP OUT OF BED IN BEDSIDE CHAIR IN DAILY ROUTINE. STAGE III WOUND POSTERIOR RIGHT SHOULDER AGAIN DEBRIDED TODAY WITH FORCEPS AND SCISSORS - THICK YELLOW SLOUGH SOFTENING WITH CALCIUM ALGINATE PRIMARY DRESSING ; MEPILEX FOAM COVER DRESSING WITH FOAM TAPE ANCHOR. DRESSING TO STAY IN TACT OVER THE WEEKEND. Initialized on 12/16/18 14:42 - END OF NOTE Assessment/Plan (1) Decubitus ulcer of scapular region, stage 3 Current Visit: Yes Status: Chronic Assessment & Plan: Continue present dressing, management. Code(s): L89.103 - PRESSURE ULCER OF UNSPECIFIED PART OF BACK, STAGE 3 (2) Decubitus ulcer of scapular region, stage 1 Current Visit: Yes Status: Acute Code(s): L89.101 - PRESSURE ULCER OF UNSPECIFIED PART OF BACK, STAGE 1 (3) Atrial fibrillation with RVR Current Visit: Yes Status: Chronic Assessment & Plan: Vital Signs Temp 97.8 F 12/18/18 07:18 Pulse 82 12/18/18 07:18 Resp 20 12/18/18 07:18 BP 115/65 12/18/18 07:18 Pulse Ox 82 L 12/18/18 07:18 Intake & Output 12/17/18 12/17/18 12/18/18 11:59 23:59 11:59 Intake Total 2385 3651 1590 Output Total 1000 1100 Balance 1385 3651 490 Weight 56.5 kg 57.8 kg Intake: Intake, Oral Amount 180 120 240 Intake, IV Amount 2205 3531 1350 Output: Output, [place]: 1000 1100 Medication Report Hydrocodone Bitart/Acetaminophen ([place] 7.5/325 Mg Tab) 1 tab PO Q6HPRN PRN PRN Reason: PAIN Stop: 12/18/18 14:55 Last Admin: 12/18/18 05:30 Dose: 1 tab MAR PAIN Document 12/18/18 05:30 PDT (Rec: 12/18/18 05:30 PDT [id number]) Reassesment Location Head Neck Pain Scale Used 0-10 Pain Scale Pain Intensity (0-10) 10 Al Hydrox/Mg Hydrox/Simethicone (Maalox Es 30 Ml Unit Dose) 30 ml PO Q4H PRN PRN PRN Reason: INDIGESTION Stop: 01/09/19 01:50 Last Admin: 12/17/18 09:51 Dose: 30 ml Albuterol/Ipratropium (Duoneb 0.5-3 Mg/3 Ml Neb) 3 ml IH QIDRT [facility] Stop: 01/09/19 14:59 Last Admin: 12/17/18 19:36 Dose: 3 ml Nebulizer Treatment Document 12/17/18 19:36 CM (Rec: 12/17/18 19:36 CM [id number]) Therapy Aerosol Therapy Subsequent Aerosol Therapy Treatment Method Nebulizer Mask Treatment Tolerance Good Ceftriaxone Sodium/Dextrose (Rocephin 1 Gm-D5w 50 Ml Bag) 1 g in 50 mls @ 100 mls/hr IV QPM [facility] Stop: 01/09/19 21:59 Last Admin: 12/17/18 22:01 Dose: 100 mls/hr Dextrose/Sodium Chloride (Dextrose 5% -0.45 Nacl 1000 Ml) 1,000 mls @ 100 mls/ hr IV .Q10H [facility] Stop: 01/09/19 08:59 Last Admin: 12/18/18 05:29 Dose: 100 mls/hr Infusion/Titration Document 12/18/18 05:29 PDT (Rec: 12/18/18 05:29 PDT [id number]) Dosing & Rate IV Rate 100 Increase/Decrease Started/Running Cumulative Dose Not Applicable IV Intake Cumulative Intake (Rx) 9,980 Container Volume 1,000 Volume Adjustment/Waste 0 Pantoprazole Sodium (Protonix 40mg Tablet) 40 mg PO QAM [facility] Stop: 01/09/19 11:59 Last Admin: 12/17/18 09:45 Dose: 40 mg Patient Own Med ( (Chantix)) 0 each PO DAILY [facility] Stop: 12/18/18 10:01 Last Admin: 12/17/18 09:46 Dose: 0.5 each Pramipexole Dihydrochloride (Mirapex 0.5 Mg Tablet) 1 mg PO HS [facility] Stop: 01/09/19 21:59 Last Admin: 12/17/18 22:01 Dose: 1 mg Prednisone (Deltasone 10 Mg) 10 mg PO DAILY [facility] Stop: 01/09/19 11:59 Last Admin: 12/17/18 09:45 Dose: 10 mg Rivaroxaban (Xarelto 10 Mg Tablet) 20 mg PO HS [facility] Stop: 01/12/19 21:59 Last Admin: 12/17/18 22:01 Dose: 20 mg Ropinirole HCl (Requip 2mg Tab) 2 mg PO DAILY [facility] Stop: 01/09/19 11:59 Last Admin: 12/17/18 09:45 Dose: 2 mg Sacubitril/Valsartan (Entresto 49 Mg-51 Mg Tablet) 2 tablet PO BID [facility] Stop: 01/12/19 21:59 Last Admin: 12/17/18 22:01 Dose: 2 tablet Fluticasone/Salmeterol (Advair Hfa 115/21 Mcg Inhaler) 2 puff IH BIDRT [facility] Stop: 01/09/19 11:59 Last Admin: 12/17/18 19:36 Dose: 2 puff Discontinued Medications Sodium Chloride (Sodium Chloride 0.9% 500 Ml) 500 mls @ 50 mls/hr IV .Q10H [facility] Stop: 01/10/19 12:29 Last Admin: 12/14/18 17:19 Dose: Not Given Non-Admin Reason: ivf changed Nicotine (Nicoderm Cq 21 Mg) 21 mg TOP Q24H [facility] Stop: 01/12/19 19:59 Last Admin: 12/17/18 03:48 Dose: Not Given Non-Admin Reason: pt on chantix started today MAR TOPICAL APPLICATION SITE Document 12/17/18 03:48 LB (Rec: 12/17/18 03:48 LB [id number]) Application Site Applied to: n/a Tuberculin PPD (Aplisol) 5 unit ID ONCE ONE Stop: 12/13/18 14:57 Last Admin: 12/14/18 11:09 Dose: 5 unit MAR Injection Site Document 12/14/18 11:09 MARCELA (Rec: 12/14/18 11:09 MARCELA [id number]) Injection Site MAR Injection Site Left Forearm PPD Administration Document 12/14/18 11:09 MARCELA (Rec: 12/14/18 11:09 MARCELA [id number]) PPD Administration PPD Test Reason Swing Bed Admission 1st Step PPD Site Left Forearm Re-Assess: PPD Reassessment Document 12/16/18 10:59 MS (Rec: 12/16/18 11:05 MS [id number]) PPD Results PPD Site Left Forearm Results (mm of induration): 0 Code(s): I48.91 - UNSPECIFIED ATRIAL FIBRILLATION (4) COPD exacerbation Current Visit: Yes Status: Acute Code(s): J44.1 - CHRONIC OBSTRUCTIVE PULMONARY DISEASE W (ACUTE) EXACERBATION (5) HTN (hypertension) Current Visit: No Status: Acute Qualifiers: Hypertension type: essential hypertension Qualified Code(s): I10 - Essential (primary) hypertension Code(s): I10 - ESSENTIAL (PRIMARY) HYPERTENSION (6) CAD (coronary artery disease) Current Visit: No Status: Chronic Code(s): I25.10 - ATHSCL HEART DISEASE OF [place] CORONARY ARTERY W/O ANG PCTRS (7) Status post CVA Current Visit: No Status: Chronic Code(s): Z86.73 - PRSNL HX OF TIA (TIA), AND CEREB INFRC W/O RESID DEFICITS
[2018-12-17] MEDS: ROCEPHIN 1 Gm-D5w 50 ml Bag** 1 G/50 ML IVPB IV SCH (22:01)
[2018-12-17] MEDS: XARELTO 10 MG TABLET PO SCH (22:01)
[2018-12-17] MEDS: Mirapex 0.5 MG Tablet PO SCH (22:01)
[2018-12-18] MEDS: Dextrose 5% -0.45 NaCl 1000 ML 1,000 ML IV SCH ×2 (05:29→16:21)
[2018-12-18] MEDS: NORCO 7.5/325 MG TAB PO PRN ×2 (05:30→13:10)
--- NOTE | 2018-12-18 07:47 | PCM.NOTE ---
Date and Time: 12/18/18 0745 Subjective Assessment: doing better, no new complaints - Review of Systems Constitutional: No Fever, No Chills Eyes: No Symptoms Ears, Nose, & Throat: No Symptoms Respiratory: No Cough, No Short Of Breath Cardiac: No Chest Pain, No Edema, No Syncope Abdominal/Gastrointestinal: No Abdominal Pain, No Nausea, No Vomiting, No Diarrhea Genitourinary Symptoms: No Dysuria Musculoskeletal: No Back Pain, No Neck Pain Skin: No Rash Neurological: No Dizziness, No Focal Weakness, No Sensory Changes Psychological: No Symptoms Endocrine: No Symptoms Hematologic/Lymphatic: No Symptoms Immunological/Allergic: No Symptoms Objective Exam General Appearance: no apparent distress, alert Neurologic Exam: alert, oriented x 3, cooperative, normal mood/affect, nml cerebellar function, sensation nml, No motor deficits Skin Exam: normal color, warm, dry, decubitus Eye Exam: PERRL, EOMI, eyes nml inspection Ears, Nose, Throat Exam: normal ENT inspection, pharynx normal, moist mucous membranes Neck Exam: normal inspection, non-tender, supple, full range of motion Respiratory Exam: normal breath sounds, lungs clear, No respiratory distress Cardiovascular Exam: regular rate/rhythm, normal heart sounds Gastrointestinal/Abdomen Exam: soft, No tenderness, No mass Extremity Exam: normal inspection, normal range of motion Back Exam: normal inspection, normal range of motion, No CVA tenderness, No vertebral tenderness Male Genitalia Exam: deferred Rectal Exam: deferred OBJECTIVE DATA Vital Signs: Vital Signs - 24 hr Temp Pulse Resp BP Pulse Ox 12/18/18 07:18 97.8 F 82 20 115/65 82 L 12/17/18 21:11 97.5 F 98 H 17 121/64 95 12/17/18 20:14 90 18 95 12/17/18 15:33 91 H 18 94 L 12/17/18 11:41 91 H 18 99 12/17/18 10:29 97.7 F 90 20 122/66 95 12/17/18 08:15 90 20 97 Oxygen-Last 24 hours O2 Percentage 2 Liters = 28% Pain Assessment - Last Documented Pain Intensity 10 Pain Scale Used 0-10 Pain Scale Intake and Output: Intake & Output 12/15/18 12/16/18 12/17/18 12/18/18 11:59 11:59 11:59 11:59 Intake Total 6743 2882 9242 5241 Output Total 2100 8944 2250 1100 Balance 1819 -54 267 4148 Weight 50.1 kg 53.4 kg 56.5 kg 57.8 kg Assessment/Plan (1) Decubitus ulcer of scapular region, stage 3 Current Visit: Yes Status: Chronic Assessment & Plan: Last Vital Signs Temp 97.8 F 12/18/18 07:18 Pulse 82 12/18/18 07:18 Resp 20 12/18/18 07:18 BP 115/65 12/18/18 07:18 Pulse Ox 82 L 12/18/18 07:18 Allergies [facility] Allergy (Verified 12/10/18 02:31) Vomiting Active Medications Acetaminophen (Tylenol 325 Mg) 650 mg PO Q4H PRN PRN PRN Reason: PAIN AND/OR FEVER Stop: 01/09/19 01:50 Hydrocodone Bitart/Acetaminophen ([place] 7.5/325 Mg Tab) 1 tab PO Q6HPRN PRN PRN Reason: PAIN Stop: 12/18/18 14:55 Last Admin: 12/18/18 05:30 Dose: 1 tab Al Hydrox/Mg Hydrox/Simethicone (Maalox Es 30 Ml Unit Dose) 30 ml PO Q4H PRN PRN PRN Reason: INDIGESTION Stop: 01/09/19 01:50 Last Admin: 12/17/18 09:51 Dose: 30 ml Albuterol Sulfate (Ventolin Hfa Mdi) 0 gm IH Q4HPRN PRN Stop: 01/12/19 15:44 Albuterol/Ipratropium (Duoneb 0.5-3 Mg/3 Ml Neb) 3 ml IH QIDRT [facility] Stop: 01/09/19 14:59 Last Admin: 12/17/18 19:36 Dose: 3 ml Ceftriaxone Sodium/Dextrose (Rocephin 1 Gm-D5w 50 Ml Bag) 1 g in 50 mls @ 100 mls/hr IV QPM [facility] Stop: 01/09/19 21:59 Last Admin: 12/17/18 22:01 Dose: 100 mls/hr Dextrose/Sodium Chloride (Dextrose 5% -0.45 Nacl 1000 Ml) 1,000 mls @ 100 mls/ hr IV .Q10H [facility] Stop: 01/09/19 08:59 Last Admin: 12/18/18 05:29 Dose: 100 mls/hr Magnesium Hydroxide (Milk Of Magnesia 30 Ml) 30 - 60 ml PO QDP PRN PRN Reason: CONSTIPATION Stop: 01/09/19 01:50 Morphine Sulfate (Morphine Sulfate 2 Mg Inj) 2 mg IV Q4H PRN PRN PRN Reason: PAIN Stop: 12/18/18 14:55 Ondansetron HCl (Zofran 4 Mg/2 Ml Vial) 4 mg IV Q4H PRN PRN PRN Reason: NAUSEA/VOMITING Stop: 01/09/19 01:50 Pantoprazole Sodium (Protonix 40mg Tablet) 40 mg PO QAM [facility] Stop: 01/09/19 11:59 Last Admin: 12/17/18 09:45 Dose: 40 mg Patient Own Med ( (Chantix)) 0 each PO DAILY [facility] Stop: 12/18/18 10:01 Last Admin: 12/17/18 09:46 Dose: 0.5 each Patient Own Medication (Patient Own Medication) 0 each PO BID [facility] Stop: 01/18/19 09:59 Pramipexole Dihydrochloride (Mirapex 0.5 Mg Tablet) 1 mg PO HS [facility] Stop: 01/09/19 21:59 Last Admin: 12/17/18 22:01 Dose: 1 mg Prednisone (Deltasone 10 Mg) 10 mg PO DAILY [facility] Stop: 01/09/19 11:59 Last Admin: 12/17/18 09:45 Dose: 10 mg Rivaroxaban (Xarelto 10 Mg Tablet) 20 mg PO HS [facility] Stop: 01/12/19 21:59 Last Admin: 12/17/18 22:01 Dose: 20 mg Ropinirole HCl (Requip 2mg Tab) 2 mg PO DAILY [facility] Stop: 01/09/19 11:59 Last Admin: 12/17/18 09:45 Dose: 2 mg Sacubitril/Valsartan (Entresto 49 Mg-51 Mg Tablet) 2 tablet PO BID [facility] Stop: 01/12/19 21:59 Last Admin: 12/17/18 22:01 Dose: 2 tablet Fluticasone/Salmeterol (Advair Hfa 115/21 Mcg Inhaler) 2 puff IH BIDRT [facility] Stop: 01/09/19 11:59 Last Admin: 12/17/18 19:36 Dose: 2 puff Senna/Docusate Sodium (Senokot-S Tablet) 2 udtab PO BID PRN PRN PRN Reason: CONSTIPATION Stop: 01/09/19 01:50 Intake & Output 12/17/18 12/18/18 11:59 11:59 Intake Total 2505 5241 Output Total 2250 1100 Balance 255 4141 Weight 56.5 kg 57.8 kg Code(s): L89.103 - PRESSURE ULCER OF UNSPECIFIED PART OF BACK, STAGE 3 (2) Decubitus ulcer of scapular region, stage 1 Current Visit: Yes Status: Acute Code(s): L89.101 - PRESSURE ULCER OF UNSPECIFIED PART OF BACK, STAGE 1 (3) Atrial fibrillation with RVR Current Visit: Yes Status: Chronic Code(s): I48.91 - UNSPECIFIED ATRIAL FIBRILLATION (4) COPD exacerbation Current Visit: Yes Status: Acute Code(s): J44.1 - CHRONIC OBSTRUCTIVE PULMONARY DISEASE W (ACUTE) EXACERBATION (5) HTN (hypertension) Current Visit: No Status: Acute Qualifiers: Hypertension type: essential hypertension Qualified Code(s): I10 - Essential (primary) hypertension Code(s): I10 - ESSENTIAL (PRIMARY) HYPERTENSION (6) CAD (coronary artery disease) Current Visit: Yes Status: Chronic Qualifiers: Coronary Disease-Associated Artery/Lesion type: [place] artery [place] vs. transplanted heart: [place] heart Associated angina: without angina Qualified Code(s): I25.10 - Atherosclerotic heart disease of [place] coronary artery without angina pectoris Code(s): I25.10 - ATHSCL HEART DISEASE OF [place] CORONARY ARTERY W/O ANG PCTRS (7) Status post CVA Current Visit: Yes Status: Chronic Code(s): Z86.73 - PRSNL HX OF TIA (TIA), AND CEREB INFRC W/O RESID DEFICITS
[2018-12-18] MEDS: Advair Hfa 115/21 Mcg Inhaler IH SCH ×2 (07:48→19:43)
[2018-12-18] MEDS: DUONEB 0.5-3 MG/3 ml Neb IH SCH ×4 (07:48→19:43)
[2018-12-18] MEDS: Protonix 40MG Tablet PO SCH (09:06)
[2018-12-18] MEDS: PATIENT OWN MEDICATION PO SCH (09:06)
[2018-12-18] MEDS: REQUIP 2MG TAB PO SCH (09:07)
[2018-12-18] MEDS: ENTRESTO 49 MG-51 MG TABLET PO SCH ×2 (09:07→22:36)
[2018-12-18] MEDS: DELTASONE 10 MG PO SCH (09:07)
[2018-12-18] MEDS: ROCEPHIN 1 Gm-D5w 50 ml Bag** 1 G/50 ML IVPB IV SCH (22:35)
[2018-12-18] MEDS: Mirapex 0.5 MG Tablet PO SCH (22:36)
[2018-12-18] MEDS: XARELTO 10 MG TABLET PO SCH (22:36)
[2018-12-19] MEDS: NORCO 7.5/325 MG TAB PO PRN (00:51)
[2018-12-19] MEDS: Dextrose 5% -0.45 NaCl 1000 ML 1,000 ML IV SCH ×2 (03:46→23:28)
[2018-12-19] MEDS: DUONEB 0.5-3 MG/3 ml Neb IH SCH ×4 (07:38→19:35)
[2018-12-19] MEDS: Advair Hfa 115/21 Mcg Inhaler IH SCH ×2 (07:39→19:35)
[2018-12-19] MEDS: Protonix 40MG Tablet PO SCH (10:16)
[2018-12-19] MEDS: ENTRESTO 49 MG-51 MG TABLET PO SCH ×2 (10:16→23:15)
[2018-12-19] MEDS: REQUIP 2MG TAB PO SCH (10:16)
[2018-12-19] MEDS: DELTASONE 10 MG PO SCH (10:16)
[2018-12-19] MEDS: PATIENT OWN MEDICATION PO SCH ×2 (10:18→23:17)
[2018-12-19] MEDS: XARELTO 10 MG TABLET PO SCH (23:14)
[2018-12-19] MEDS: Mirapex 0.5 MG Tablet PO SCH (23:14)
[2018-12-19] MEDS: ROCEPHIN 1 Gm-D5w 50 ml Bag** 1 G/50 ML IVPB IV SCH (23:14)
[2018-12-20] MEDS: Advair Hfa 115/21 Mcg Inhaler IH SCH ×2 (06:53→19:16)
[2018-12-20] MEDS: DUONEB 0.5-3 MG/3 ml Neb IH SCH ×4 (06:53→19:16)
--- NOTE | 2018-12-20 09:29 | PCM.DS ---
Discharge Summary Date of Admission: 12/13/18 14:45 Admitting Physician: DAVID LENTZ Consults: Consults on Case 12/13/18 14:56 Nutritional Consult Primary Care Provider: OLGA BRAGG WENDY Allergies Allergies montelukast [From [facility]] Allergy (Verified 12/10/18 02:31) Vomiting Hospital Summary - Hospital Course Hospital Course: patient was admitted with weakness, inability to ambulate and copd exacerbation. had a cva and has had significant decline, poor po intake. was admitted and then put in swing, strength has improved. patient and have decided to go back home with hospice today, his prognosis is guarded. - Vitals & Intake/Output Vital Signs: Vital Signs Temperature 96.8 F 12/20/18 07:24 Pulse Rate 77 12/20/18 07:24 Respiratory Rate 20 12/20/18 07:24 Blood Pressure 135/64 12/20/18 07:24 O2 Sat by Pulse Oximetry 97 12/20/18 07:24 Oxygen-Last Documented O2 Percentage 2 Liters = 28% Intake & Output: Intake & Output 12/17/18 12/18/18 12/19/18 12/20/18 11:59 11:59 11:59 11:59 Intake Total 2505 5241 3435 1783 Output Total 2250 1100 1100 2300 Balance 255 4141 2335 -517 Weight 56.5 kg 57.8 kg 58 kg 54.9 kg - Procedures and Test Procedures and Tests throughout Hospitalization: Therapy Orders & Screens 12/13/18 14:56 PT Eval & Treat ( Order) ROUTINE Reason for Eval:: DECONDITIONING R/T MALNUTRITION, EXAC COPD, ANEMIA Diagnosis: DECONDITIONING R/T MALNUTRITION, EXAC COPD, ANEMIA PT Eval & Treat (MD Order) ROUTINE Reason for Eval:: skin breakdown/decubes Diagnosis: elevated troponin Oxygen Nasal Cannula 2 lpm Comment: Respiratory Therapy Assessment DAILY Comment: Diagnosis: elevated troponin ST Eval & Treat ( Order) .as ordered Comment: Ann called at home and notified of consult. Physician Instructions: Reason For Exam: Evaluate: Yes Treat: Yes Reason for Eval: stroke 3 months ago. Difficulty swallowing. weight loss Diagnosis: elevated troponin ST Screen per Nursing Assess once Comment: Protocol Order Physician Instructions: Greater than [address] Admission Screening Reason For Exam: Triggered on Admission Diagnosis: elevated troponin CVA/Dyshpagia/Aphasia: Yes Cognitive Deficits: No Dehydration/Nutrition Deficit: Yes Reflux: No Oral-Motor Difficulties: Yes Pneumonia: No Correction Resident: No Total Points: 13 12/14/18 07:00 Respiratory MDI BID Comment: ADVAIR 115/21 2 PUFFS BID Diagnosis: DECONDITIONING R/T MALNUTRITION, EXAC COPD, ANEMIA Discharge Exam General Appearance: thin Neurologic Exam: alert Skin Exam: normal color, warm, dry Respiratory Exam: normal breath sounds, lungs clear, No respiratory distress Cardiovascular Exam: regular rate/rhythm, normal heart sounds Gastrointestinal/Abdomen Exam: soft (slurred speech, diffusely weak), No tenderness, No mass Final Diagnosis/Problem List - Final Discharge Diagnosis/Problem (1) COPD exacerbation Current Visit: Yes Status: Acute Code(s): J44.1 - CHRONIC OBSTRUCTIVE PULMONARY DISEASE W (ACUTE) EXACERBATION (2) Atrial fibrillation with RVR Current Visit: Yes Status: Chronic Code(s): I48.91 - UNSPECIFIED ATRIAL FIBRILLATION (3) Status post CVA Current Visit: Yes Status: Chronic Code(s): Z86.73 - PRSNL HX OF TIA (TIA), AND CEREB INFRC W/O RESID DEFICITS (4) Malnutrition Current Visit: No Status: Chronic Code(s): E46 - UNSPECIFIED PROTEIN- CALORIE MALNUTRITION - Discharge Disposition: Hospice @ [facility] Condition: Poor Prescriptions: Continue PANTOPRAZOLE 40 mg Tablet [Protonix 40MG Tablet] 40 mg PO QAM Ropinirole 2Mg [Requip 2Mg Tab] 2 mg PO DAILY Prednisone 10 mg [Deltasone 10 mg] 1 tab PO DAILY Hydrocodone Bit/Acetaminophen [[place] 7.5-325 Tablet] 1 each PO Q6HPRN PRN PRN Reason: Pain Fluticasone/Salmeterol [Advair 250-50 Diskus] 2 each IH BID Atorvastatin Calcium [Lipitor] 1 tablet PO DAILY Aspirin 81 mg PO DAILY Albuterol Sulfate [Ventolin Hfa] 1 gm IH UD PRN PRN Reason: Shortness Of Breath Nitroglycerin 0.4 mg Tablet [Nitrostat 0.4 MG Tablet] 0.4 mg SL UD PRN PRN Reason: Chest Pain Albuterol/Ipratropium 3ml Neb* [DUONEB 0.5-3 MG/3 ml Neb] 3 ml IH QID PRN # 100 ampul.neb PRN Reason: Shortness Of Breath Rivaroxaban 10 mg Tablet [Xarelto 10 mg Tablet] 20 mg PO DINNER Spironolactone 25 mg [Aldactone 25 MG] 25 mg PO DAILY Sacubitril/Valsartan [Entresto 97 mg-103 mg Tablet] 1 each PO BID Diltiazem HCl [Cartia Xt] 180 mg PO DAILY Meclizine HCl 25 mg [Antivert 25 mg] 25 mg PO TIDPRN Pramipexole Di-HCl [Mirapex] 1 mg PO HS
[2018-12-20] MEDS: ENTRESTO 49 MG-51 MG TABLET PO SCH ×2 (10:57→21:48)
[2018-12-20] MEDS: DELTASONE 10 MG PO SCH (10:57)
[2018-12-20] MEDS: PATIENT OWN MEDICATION PO SCH ×2 (10:58→21:49)
[2018-12-20] MEDS: Protonix 40MG Tablet PO SCH (10:59)
[2018-12-20] MEDS: REQUIP 2MG TAB PO SCH (10:59)
[2018-12-20] MEDS: Dextrose 5% -0.45 NaCl 1000 ML 1,000 ML IV SCH (13:38)
[2018-12-20] MEDS: NORCO 7.5/325 MG TAB PO PRN (16:51)
[2018-12-20] MEDS: Mirapex 0.5 MG Tablet PO SCH (21:49)
[2018-12-20] MEDS: ROCEPHIN 1 Gm-D5w 50 ml Bag** 1 G/50 ML IVPB IV SCH (21:49)
[2018-12-20] MEDS: XARELTO 10 MG TABLET PO SCH (21:49)
[2018-12-21] MEDS: Advair Hfa 115/21 Mcg Inhaler IH SCH (06:53)
[2018-12-21] MEDS: DUONEB 0.5-3 MG/3 ml Neb IH SCH ×2 (06:53→10:41)
--- NOTE | 2018-12-21 09:03 | PCM.DS ---
Discharge Summary Date of Admission: 12/13/18 14:45 Admitting Physician: DAVID LENTZ Consults: Consults on Case 12/13/18 14:56 Nutritional Consult Primary Care Provider: OLGA BRAGG WENDY Allergies Allergies montelukast [From Singulair] Allergy (Verified 12/10/18 02:31) Vomiting Hospital Summary - Hospital Course Hospital Course: patient was admitted with weakness and deconditioning, history of CVA. he was in swing bed and doing better functionally, going home on hospice. was not discharged as planned yesterday due to delay in getting the hospital bed delivered. - Vitals & Intake/Output Vital Signs: Vital Signs Temperature 98.1 F 12/20/18 21:58 Pulse Rate 94 H 12/21/18 06:58 Respiratory Rate 18 12/21/18 06:58 Blood Pressure 108/63 12/20/18 21:58 O2 Sat by Pulse Oximetry 96 12/21/18 06:58 Oxygen-Last Documented O2 Percentage 2 Liters = 28% Intake & Output: Intake & Output 12/18/18 12/19/18 12/20/18 12/21/18 11:59 11:59 11:59 11:59 Intake Total 5241 3435 2023 360 Output Total 1100 1100 2300 2100 Balance 4149 1022 -454 -7998 Weight 57.8 kg 58 kg 54.9 kg 55.8 kg - Procedures and Test Procedures and Tests throughout Hospitalization: Therapy Orders & Screens 12/13/18 14:56 PT Eval & Treat (MD Order) ROUTINE Reason for Eval:: DECONDITIONING R/T MALNUTRITION, EXAC COPD, ANEMIA Diagnosis: DECONDITIONING R/T MALNUTRITION, EXAC COPD, ANEMIA PT Eval & Treat (MD Order) ROUTINE Reason for Eval:: skin breakdown/decubes Diagnosis: elevated troponin Oxygen Nasal Cannula 2 lpm Comment: Respiratory Therapy Assessment DAILY Comment: Diagnosis: elevated troponin ST Eval & Treat (MD Order) .as ordered Comment: Ann called at home and notified of consult. Physician Instructions: Reason For Exam: Evaluate: Yes Treat: Yes Reason for Eval: stroke 3 months ago. Difficulty swallowing. weight loss Diagnosis: elevated troponin ST Screen per Nursing Assess once Comment: Protocol Order Physician Instructions: Greater than [address] Admission Screening Reason For Exam: Triggered on Admission Diagnosis: elevated troponin CVA/Dyshpagia/Aphasia: Yes Cognitive Deficits: No Dehydration/Nutrition Deficit: Yes Reflux: No Oral-Motor Difficulties: Yes Pneumonia: No [facility] Resident: No Total Points: 13 12/14/18 07:00 Respiratory MDI BID Comment: ADVAIR 115/21 2 PUFFS BID Diagnosis: DECONDITIONING R/T MALNUTRITION, EXAC COPD, ANEMIA Discharge Exam General Appearance: thin Neurologic Exam: alert, motor deficits, slurred speech Skin Exam: normal color, warm, dry Respiratory Exam: normal breath sounds Cardiovascular Exam: regular rate/rhythm, normal heart sounds Gastrointestinal/Abdomen Exam: soft, normal bowel sounds, tenderness Extremity Exam: normal inspection Final Diagnosis/Problem List - Final Discharge Diagnosis/Problem (1) COPD exacerbation Current Visit: Yes Status: Acute Code(s): J44.1 - CHRONIC OBSTRUCTIVE PULMONARY DISEASE W (ACUTE) EXACERBATION (2) Atrial fibrillation with RVR Current Visit: Yes Status: Chronic Code(s): I48.91 - UNSPECIFIED ATRIAL FIBRILLATION (3) Status post CVA Current Visit: Yes Status: Chronic Code(s): Z86.73 - PRSNL HX OF TIA (TIA), AND CEREB INFRC W/O RESID DEFICITS (4) Malnutrition Current Visit: No Status: Chronic Code(s): E46 - UNSPECIFIED PROTEIN- CALORIE MALNUTRITION - Discharge Disposition: Hospice @ [facility] Condition: Poor Prescriptions: Continue PANTOPRAZOLE 40 mg Tablet [Protonix 40MG Tablet] 40 mg PO QAM Ropinirole 2Mg [Requip 2Mg Tab] 2 mg PO DAILY Prednisone 10 mg [Deltasone 10 mg] 1 tab PO DAILY Hydrocodone Bit/Acetaminophen [[place] 7.5-325 Tablet] 1 each PO Q6HPRN PRN PRN Reason: Pain Fluticasone/Salmeterol [Advair 250-50 Diskus] 2 each IH BID Atorvastatin Calcium [Lipitor] 1 tablet PO DAILY Aspirin 81 mg PO DAILY Albuterol Sulfate [Ventolin Hfa] 1 gm IH UD PRN PRN Reason: Shortness Of Breath Nitroglycerin 0.4 mg Tablet [Nitrostat 0.4 MG Tablet] 0.4 mg SL UD PRN PRN Reason: Chest Pain Albuterol/Ipratropium 3ml Neb* [DUONEB 0.5-3 MG/3 ml Neb] 3 ml IH QID PRN # 100 ampul.neb PRN Reason: Shortness Of Breath Rivaroxaban 10 mg Tablet [Xarelto 10 mg Tablet] 20 mg PO DINNER Spironolactone 25 mg [Aldactone 25 MG] 25 mg PO DAILY Sacubitril/Valsartan [Entresto 97 mg-103 mg Tablet] 1 each PO BID Diltiazem HCl [Cartia Xt] 180 mg PO DAILY Meclizine HCl 25 mg [Antivert 25 mg] 25 mg PO TIDPRN Pramipexole Di-HCl [Mirapex] 1 mg PO HS
[2018-12-21] MEDS: Protonix 40MG Tablet PO SCH (10:15)
[2018-12-21] MEDS: ENTRESTO 49 MG-51 MG TABLET PO SCH (10:16)
[2018-12-21] MEDS: REQUIP 2MG TAB PO SCH (10:16)
[2018-12-21] MEDS: DELTASONE 10 MG PO SCH (10:16)
[2018-12-21] MEDS: PATIENT OWN MEDICATION PO SCH ×2 (10:24→10:59)
[2018-12-21 13:24] VITALS: BP 124/61; PULSE 88; O2SAT 100
== END 2018-12-21 13:53 | disposition hospice, home (50) | DRG 190 ==
LOC: MED SURG 14:45
PROVIDERS: ADMIT Family Medicine; ATTEND Family Medicine
DX: J44.1 Chronic obstructive pulmonary disease with (acute) exacerbation (principal); L89.113 Pressure ulcer of right upper back, stage 3; E46 Unspecified protein-calorie malnutrition; I48.91 Unspecified atrial fibrillation; Z86.73 Personal history of transient ischemic attack (TIA), and cerebral infarction without residual deficits; Z79.899 Other long term (current) drug therapy; R53.1 Weakness; Z79.01 Long term (current) use of anticoagulants; I10 Essential (primary) hypertension; M16.0 Bilateral primary osteoarthritis of hip; I25.10 Atherosclerotic heart disease of native coronary artery without angina pectoris
CPT/HCPCS: 94640; 94760; J0696; A9270-GY